=== PATIENT | female | born 1975 | race Caucasian/White ===

== ENCOUNTER 2017-03-15 11:34 | Emergency (ER) | payer MEDICARE ==
[2017-03-15 12:17] LABS: #Basophils 0.1 thou/uL (0.0-0.2); #Eosinphils 0.1 thou/uL (0.0-0.7); #Lymphocytes 2.2 thou/uL (1.20-3.40); #Monocytes 0.4 thou/uL (0.11-0.59); #Neutrophils 9.2 thou/uL (1.40-6.50); %Basophils 0.6 % (0.0-1.0); %Eosinophils 0.7 % (0.0-10.0); %Lymphocytes 18.3 % (21.0-51.0); %Monocytes 3.6 % (0.0-10.0); Hematocrit 38.1 % (36.0-47.0); Mean Platelet Volume 6.3 fL (7.4-10.4); Red Blood Cell (RBC) Count 4.23 mill/uL (4.20-5.40)
[2017-03-15 12:39] LABS: ALT (SGPT) 19 U/L (8-55); AST (SGOT) 19 U/L (5-34); Acetaminophen Less than 6.0 mcg/mL (10.0-30.0); Alkaline Phosphatase 79 U/L (40-150); Anion Gap 12 mmol/L (10-20); BUN (Urea Nitrogen) 17 mg/dL (7.0-18.7); Bilirubin, Total 0.2 mg/dL (0.2-1.2); CK (CPK) 166 U/L (29-168); Calc. Creatinine Clearance 0 mL/min (70-130); Calcium 9.3 mg/dL (7.8-10.44); Carbon Dioxide 23 mmol/L (22-29); Chloride 110 mmol/L (98-107); Estimated GFR-MDRD 66; Globulin 3.3 g/dL (2.4-3.5); Salicylate Less than 8.0 mg/dL (15.0-30.0)
[2017-03-15] MEDS ORDERED: Ondansetron HCl/PF 4 MG/2 ML Vial ONE ×2 (13:13→13:20)
[2017-03-15] MEDS ORDERED: Promethazine HCl 25 MG/ML VIAL ONE (14:04)
[2017-03-15 14:27] LABS: Bilirubin Negative (Negative); Blood, Urine Negative (Negative); Glucose, Urine (Dipstick) Negative (Negative); Ketone, Urine Negative (Negative); Nitrite Negative (Negative); Protein, Urine (Dipstick) Negative (Neg-Trace); Urobilinogen 0.2 mg/dL (0.2-1.0)
[2017-03-15] MEDS ORDERED: Ketorolac Tromethamine 30 MG/ML VIAL ONE (14:35)
[2017-03-15 14:38] LABS: Amphetamine Not Detected (NotDetected); Methadone Not Detected (NotDetected); Methamphetamine Not Detected (NotDetected)
== END 2017-03-15 14:55 | disposition home or self-care (01) ==
LOC: ERS 11:34
DX: T65.91XA Toxic effect of unspecified substance, accidental (unintentional), initial encounter (principal); K21.9 Gastro-esophageal reflux disease without esophagitis; G43.909 Migraine, unspecified, not intractable, without status migrainosus; F31.9 Bipolar disorder, unspecified; F23 Brief psychotic disorder; F41.9 Anxiety disorder, unspecified
CPT/HCPCS: 36415; 80053; 80306; 80307; 81003; 82550; 84443; 85025; 93005; 96361; 96365; 96375; J1885; J2405; J2550

== ENCOUNTER 2018-04-25 03:45 | Observation (INO) | payer MEDICARE ==
[2018-04-25] MEDS ORDERED: metroNIDAZOLE 500 MG/100 ML BAG ONE (04:07)
[2018-04-25 04:37] LABS: #Basophils 0.1 thou/uL (0.0-0.2); #Eosinphils 0.3 thou/uL (0.0-0.7); #Monocytes 0.7 thou/uL (0.11-0.59); #Neutrophils 7.4 thou/uL (1.40-6.50); %Basophils 0.6 % (0.0-1.0); %Eosinophils 3.2 % (0.0-10.0); %Lymphocytes 19.2 % (21.0-51.0); %Monocytes 6.7 % (0.0-10.0); %Neutrophils 70.3 % (42.0-75.0); Hemoglobin 14.5 g/dL (12.0-16.0); Mean Corpuscular HGB CONC 31.8 g/dL (32.0-36.0); Mean Corpuscular Hemoglobin 29.5 pg (27.0-31.0); Mean Corpuscular Volume 92.6 fL (78.0-98.0); Mean Platelet Volume 6.4 fL (7.4-10.4); Platelet Count 431 thou/uL (130-400); RBC Distribution Width 12.7 % (11.5-14.5); Red Blood Cell (RBC) Count 4.93 mill/uL (4.20-5.40); White Blood Cell (WBC) Count 10.6 thou/uL (4.8-10.8)
[2018-04-25] MEDS ORDERED: Morphine 2 MG/ML SYRINGE ONE ×2 (04:46→05:37)
[2018-04-25 04:57] LABS: ALT (SGPT) 22 U/L (8-55); AST (SGOT) 14 U/L (5-34); Alkaline Phosphatase 62 U/L (40-150); Anion Gap 16 mmol/L (10-20); BUN (Urea Nitrogen) 13 mg/dL (7.0-18.7); Bilirubin, Total 0.3 mg/dL (0.2-1.2); Calc. Creatinine Clearance 0 mL/min (70-130); Calcium 9.4 mg/dL (7.8-10.44); Carbon Dioxide 20 mmol/L (22-29); Chloride 105 mmol/L (98-107); Estimated GFR-MDRD 62; Globulin 3.3 g/dL (2.4-3.5); Glucose 117 mg/dL (70-105); Lipase 15 U/L (8-78); Magnesium 2.4 mg/dL (1.6-2.6); Potassium 3.5 mmol/L (3.5-5.1); Protein, Total 7.3 g/dL (6.0-8.3); Sodium 137 mmol/L (136-145)
[2018-04-25] MEDS ORDERED: Lidocaine Viscous Sol 2% 15 ml UD Cup ONE (05:37)
[2018-04-25] MEDS ORDERED: Mag-Al 1200 mg/1200 mg/30 ML UDCUP ONE (05:37)
[2018-04-25 07:34] VITALS: BMI 38.2
[2018-04-25] MEDS ORDERED: HYDROcodone/Acetaminophen 5/325 mg Tablet PO PRN (08:03)
[2018-04-25] MEDS ORDERED: Senokot S 8.6-50 MG TAB PO PRN (08:03)
[2018-04-25] MEDS ORDERED: OLANZapine 5 MG TAB PO SCH (08:15)
[2018-04-25] MEDS ORDERED: predniSONE 20 MG TAB PO SCH (08:30)
--- NOTE | 2018-04-25 08:37 | RAD ---
RADIOGRAPH CHEST 1 VIEW: HISTORY: 42-year-old female with dyspnea. FINDINGS: There are no air space densities, pulmonary edema, pneumothorax, or cardiomegaly. The lateral costop hrenic angles are sharp. IMPRESSION: No acute cardiopulmonary findings. nick [] POS: DAVI
[2018-04-25] MEDS ORDERED: predniSONE 20 MG TAB ONE (08:54)
[2018-04-25] MEDS ORDERED: Topiramate 100 MG TAB ONE (08:56)
[2018-04-25] MEDS ORDERED: clonazePAM 1 MG TAB ONE (08:56)
[2018-04-25] MEDS: HYDROcodone/Acetaminophen 5/325 mg Tablet PO PRN ×3 (09:42→20:47)
[2018-04-25] MEDS: clonazePAM 1 MG TAB PO SCH ×3 (09:43→20:47)
[2018-04-25] MEDS: guaiFENesin 200 MG TAB PO SCH ×3 (09:43→20:47)
[2018-04-25] MEDS: Bupropion 100 MG SR TAB PO SCH (09:43)
[2018-04-25] MEDS: OLANZapine 5 MG TAB PO SCH ×2 (09:43→20:47)
[2018-04-25] MEDS: Sodium Chloride 0.9% 1,000 ML IV SCH ×2 (09:43→23:18)
[2018-04-25] MEDS: Topiramate 100 MG TAB PO SCH (09:43)
[2018-04-25] MEDS: Piperacillin/Tazobactam 3.375 GM in Sodium Chloride 0.9% 100 ML IVPB SCH ×3 (12:02→23:18)
[2018-04-25] MEDS: OLANZapine 2.5 MG TAB PO SCH (12:02)
[2018-04-25] MEDS ORDERED: Doxepin HCl 25 MG CAP PO SCH (21:00)
[2018-04-25] MEDS ORDERED: Topiramate 100 MG TAB PO SCH (21:00)
--- NOTE | 2018-04-25 23:25 | HP ---
CHIEF COMPLAINT: Shortness of breath. HISTORY OF PRESENT ILLNESS: This patient is a 42-year-old female who has history of severe bipolar d isorder who goes to [facility] for electroshock therapy every Friday. This Friday, the patient lora d an episode and subsequently was thought to have possibly aspirated. She has had some cough and wiley rtness of breath since that time. She presented to the emergency department on 04/23/2018 with a com plaint of some difficulty breathing at that time. She underwent workup which included a CT scan of t he chest and she was diagnosed with bronchitis and discharged home. At that time, the patient had a white blood cell count of 16.7. The patient apparently returned on 04/24/2018 to [facility] in [place] where she continued to complain that she was having some shortness of breath. Review of her CT scan performed the day before was concerning for possibility of some aspira tion with patchy left upper lobe infiltrates. Patient was subsequently transferred to our facility. She did receive ceftriaxone and Flagyl as well as repeated DuoNebs. She also complained of some gen eralized abdominal pain and received Gypsy, Ativan, and ketorolac. Patient reports that she still fe els like she is having some difficulty with her breathing. She continues to report generalized pain and requests medication for pain. REVIEW OF SYSTEMS: Notable for generalized malaise and fatigue. She has some back pain and generali zed myalgias. PAST MEDICAL HISTORY: Notable for history of bipolar disorder, gastroesophageal reflux, migraines, s ome type of irregular heartbeat. PAST SURGICAL HISTORY: Left knee surgery x4, right knee surgery x5, prior breast biopsy, appendectom y, hysterectomy, tubal ligation, breast augmentation, back surgery, abscess of the left ankle, which was apparently Staph and a neurostimulator placement at some point for the back pain. SOCIAL HISTORY: Patient is a nonsmoker, nondrinker, nondrug user. She is FULL CODE, but says that i s primarily to make her mother happy and her mother would be her surrogate decision maker should that be necessary. FAMILY HISTORY: Diabetes and heart disease are present. ALLERGIES: ZOFRAN and ADHESIVES. CURRENT MEDICATIONS: Omeprazole 20 mg every day, olanzapine 2.5 mg 2 q.a.m. and q.p.m. and 1 p.o. ev gen daily, bupropion 100 mg every day, Klonopin 1 mg t.i.d., topiramate 200 mg q.a.m. and 100 mg at b edtime, doxepin 150 mg every day, iron bisglycinate q.8, Chelate 25 mg every day. PHYSICAL EXAMINATION: VITAL SIGNS: Temperature is 97.6, pulse 77, respirations 16, O2 sat 97% on room air, BP 106/75. GENERAL APPEARANCE: Age appropriate female, morbidly obese. She is awake and alert, appears general ly frail. HEENT: PERRL. No OP lesions. NECK: Supple and symmetric. HEART: Regular rate and rhythm without murmurs. LUNGS: Clear to auscultation. She has some significant upper airway rhonchi which seemed to be some what related to self-induced auto PEEP. ABDOMEN: Soft, nontender, nondistended. Positive bowel sounds. No masses, no organomegaly. MUSCULOSKELETAL: Lower extremities warm and dry with no edema. LABORATORY DATA AND IMAGING DATA: White count 10.6, hemoglobin 14.5, platelets 431, 70% neutrophils, 19.2 lymphocytes, 6.7 monocytes, 3.2 eosinophils 7.4, neutrophils. Sodium 137, potassium 3.5, chlor roseanna 105, CO2 20, BUN 13, creatinine 0.98, glucose 117, calcium 9.4, magnesium 2.4, AST is 14, ALT is 22, albumin 4.0, lipase 15. Influenza screen negative. Chest x-ray negative. ASSESSMENT AND PLAN: 1. Possible aspiration pneumonia. The patient had apparent evidence of aspiration at her electric s hock therapy on Friday, she presented to the emergency department 2 days ago and was diagnosed. A t that time she was noted to have a white count of over 16,000. Currently, the patient reports subje ctive shortness of breath and difficulty breathing, although she is not tachypneic or tachycardic and her oxygen saturation is normal. Her exam seems to be revealing more upper airway rhonchi which adri f-induced auto PEEP and noises cannot be ruled out based on my exam. The patient will be treated wit h appropriate antibiotics for aspiration. She reports that receiving the nebulizer treatments at the emergency room did not help her in any way and only made her feel shaky, so I will not continue thos e as it does not appear that she has any small airway obstruction or wheezes. We will see how she do es in the morning. 2. Generalized myalgias. Unclear etiology, may be related to infection, but it looks like she may h ave some degree of chronic pain syndrome related to her back. We will give her low dose Gypsy to use as needed. Given her one dose of steroids to try to help with the myalgias and upper airway symptom s as well. 3. History of bipolar disorder. We will continue all of her usual home medications.
[2018-04-26 04:07] LABS: #Eosinphils 0.1 thou/uL (0.0-0.7); #Lymphocytes 1.1 thou/uL (1.20-3.40); #Monocytes 0.4 thou/uL (0.11-0.59); %Basophils 0.3 % (0.0-1.0); %Eosinophils 0.6 % (0.0-10.0); %Lymphocytes 11.7 % (21.0-51.0); %Monocytes 4.4 % (0.0-10.0); Hemoglobin 12.9 g/dL (12.0-16.0); Mean Corpuscular Hemoglobin 30.7 pg (27.0-31.0); Mean Corpuscular Volume 92.8 fL (78.0-98.0); Mean Platelet Volume 6.7 fL (7.4-10.4); Platelet Count 346 thou/uL (130-400); RBC Distribution Width 12.5 % (11.5-14.5); Red Blood Cell (RBC) Count 4.21 mill/uL (4.20-5.40); White Blood Cell (WBC) Count 9.6 thou/uL (4.8-10.8)
[2018-04-26 04:32] LABS: Anion Gap 10 mmol/L (10-20); BUN (Urea Nitrogen) 10 mg/dL (7.0-18.7); Calc. Creatinine Clearance 146 mL/min (70-130); Calcium 8.5 mg/dL (7.8-10.44); Carbon Dioxide 18 mmol/L (22-29); Chloride 113 mmol/L (98-107); Estimated GFR-MDRD 70; Glucose 146 mg/dL (70-105); Potassium 4.2 mmol/L (3.5-5.1); Sodium 137 mmol/L (136-145)
[2018-04-26] MEDS: Piperacillin/Tazobactam 3.375 GM in Sodium Chloride 0.9% 100 ML IVPB SCH ×2 (05:26→11:26)
[2018-04-26 07:35] VITALS: BP 117/75; TEMP 98
[2018-04-26] MEDS: clonazePAM 1 MG TAB PO SCH (07:36)
[2018-04-26] MEDS: guaiFENesin 200 MG TAB PO SCH (07:36)
[2018-04-26] MEDS: Bupropion 100 MG SR TAB PO SCH (07:36)
[2018-04-26] MEDS: Topiramate 100 MG TAB PO SCH (07:37)
[2018-04-26] MEDS: OLANZapine 5 MG TAB PO SCH (07:37)
--- NOTE | 2018-04-26 09:03 | RAD ---
RADIOGRAPH CHEST 2 VIEWS: HISTORY: 42-year-old female with dyspnea. Possible pneumonia. FINDINGS: There is no air space density, pulmonary edema, pleural effusion, pneumothorax, or cardiomegaly. IMPRESSION: No acute cardiopulmonary findings. jn [] POS: DAVI
[2018-04-26] MEDS ORDERED: predniSONE 20 MG TAB PO SCH (09:45)
[2018-04-26] MEDS: Sodium Chloride 0.9% 1,000 ML IV SCH (10:18)
[2018-04-26] MEDS: OLANZapine 2.5 MG TAB PO SCH (11:26)
--- NOTE | 2018-04-26 12:08 | PDOC.PN ---
- Subjective Encounter Start Date: 04/26/18 Encounter Start Time: 07:40 Subjective: breathing better - Objective Resuscitation Status: Resuscitation Status FULL:Full Resuscitation MAR Reviewed: Yes Vital Signs & Weight: Vital Signs (12 hours) Temp Pulse Resp BP Pulse Ox 04/26/18 07:31 98 F 80 16 117/75 95 04/26/18 04:00 97.3 F L 94 16 106/71 95 Weight Weight 244 lb 7.882 oz I&O: 04/25/18 04/26/18 04/27/18 06:59 06:59 06:59 Intake Total 1617 Balance 1617 Result Diagrams: 04/26/18 03:40 04/26/18 03:40 Phys Exam - Physical Examination HEENT: PERRLA, moist MMs Neck: no JVD, supple Respiratory: no wheezing, no rales Cardiovascular: RRR, no significant murmur Gastrointestinal: soft, non-tender, positive bowel sounds Musculoskeletal: no edema, pulses present Neurological: non-focal, moves all 4 limbs Psychiatric: normal affect, A&O x 3 Dx/Plan (1) Aspiration pneumonitis Code(s): J69.0 - PNEUMONITIS DUE TO INHALATION OF FOOD AND VOMIT Status: Acute (2) Bipolar disorder with severe depression Code(s): F31.4 - BIPOLAR DISORD, CRNT EPSD DEPRESS, SEV, W/O PSYCH FEATURES Status: Chronic (3) Obesity (BMI 30-39.9) Code(s): E66.9 - OBESITY, UNSPECIFIED Status: Chronic (4) Migraine Code(s): G43.909 - MIGRAINE, UNSP, NOT INTRACTABLE, WITHOUT STATUS MIGRAINOSUS Status: Chronic (5) GERD (gastroesophageal reflux disease) Code(s): K21.9 - GASTRO-ESOPHAGEAL REFLUX DISEASE WITHOUT ESOPHAGITIS Status: Chronic Qualifiers: Esophagitis presence: esophagitis presence not specified Qualified Code(s) : K21.9 - Gastro-esophageal reflux disease without esophagitis - Plan dc pt home -: is on augmentin, alb inhaler -: hemostable -: cxr x2 no infiltrate, cta had left UE infiltrate -: is amb in hallway with spo2 of 95% * .
--- NOTE | 2018-04-26 17:06 | DIS ---
DATE OF ADMISSION: 04/25/2018 DATE OF DISCHARGE: 04/26/2018 DISCHARGE DIAGNOSES: 1. Aspiration bronchitis. 2. Generalized myalgias. 3. History of bipolar disorder. HISTORY OF PRESENT ILLNESS: The patient is a 42-year-old female with a history of significant bipola r disorder who goes to [place] every Friday in order to have electric shock therapy. This past , the patient apparently had some concerns for possible aspiration. She followed up at the [facility] Department on the where she had workup including a CT scan of the chest. T he patient was diagnosed with bronchitis and discharged to home. The patient returned the following day with persistent symptoms and some generalized myalgias. The patient had review of her CT scan, w hich reportedly showed some left upper lobe faint infiltrates concerning for the possibility of aspir ation. The patient was treated with IV antibiotics and subsequently transferred to our facility. Re peat chest x-ray at that time showed no evidence of infiltrate. HOSPITAL COURSE: The patient was admitted to the hospital. She was started on IV Zosyn for possible aspiration. She remained in observation status. Her initial exam did not reveal significant rales or wheezes in the periphery, but more bronchial rhonchi. The patient remained afebrile overnight. H er oxygen saturations remained quite normal without any supplemental oxygen therapy. She did receive 1 dose of prednisone initially in order to help improve her myalgias and hopefully resolve some of t he inflammation associated with what appeared to be more bronchitis. The following morning, the gamaliel ent's exam was somewhat improved. She still reported that she felt like she was working hard to [employer], although she was not tachypneic. She was not tachycardic. She remained afebrile and her chest x-ray remained clear. I discussed the situation with the patient. There is really no evidence of si gnificant pneumonia or pneumonitis. My review of her CAT scan suggests that the findings are extreme ly faint and even equivocal on the CT scan. Given her normal vital signs, normal oxygen status, norm al white blood cell count, and normal chest x-ray x2, I feel confident that she can be treated as an outpatient with oral therapy. The patient feels like she can get up and around adequately at home to function. She has a 15-year-old daughter there and her mother lives in [place] as well. Her [facility] er will be able to come pick her up today. I was able to absorb her walking in the [place] at the [facility] and she appears to be doing well. PHYSICAL EXAMINATION: VITAL SIGNS: Temperature is 98, pulse 80, respirations 16, O2 sat 95% on room air, BP 117/75. GENERAL APPEARANCE: Obese, age-appropriate female. She is little bit lethargic, but in no distress, appropriately conversant. HEART: Regular without murmurs. LUNGS: Clear, although she does have some modest bronchial rhonchi, which are significantly improved from the prior exam. ABDOMEN: Soft and nontender. EXTREMITIES: Warm and dry without edema. LABORATORY DATA: White count is 9.6, hemoglobin 12.9, platelets 364. Blood cultures remain negative and chest x-ray shows no acute cardiopulmonary disease. DISPOSITION: The patient will be discharged to home. DISCHARGE MEDICATIONS: She is to continue all of her usual home medications. She will also be on Au gmentin 875 one p.o. b.i.d. DISCHARGE INSTRUCTIONS: She is to have a regular diet and activity level. She indicates that she lora s an appointment to establish with her PCP sometime within the next 2 weeks. She is encouraged to re turn to the Emergency Department should she have any problems prior to that time. I will also give h er 1 more dose of oral prednisone prior to her discharge. The patient should follow up with her PCP regarding the possibility of some sleep apnea as well.
== END 2018-04-26 14:44 | disposition home or self-care (01) ==
LOC: ERS 03:45 → T4-A 05:00 → T4-B 06:54
PROVIDERS: ADMIT Internal Medicine; ATTEND Internal Medicine
DX: J69.0 Pneumonitis due to inhalation of food and vomit (principal); F31.4 Bipolar disorder, current episode depressed, severe, without psychotic features; E66.9 Obesity, unspecified; G43.909 Migraine, unspecified, not intractable, without status migrainosus; K21.9 Gastro-esophageal reflux disease without esophagitis; M79.10 Myalgia, unspecified site; Z88.8 Allergy status to other drugs, medicaments and biological substances; Z79.899 Other long term (current) drug therapy
CPT/HCPCS: 71045; 71046; 80048; 80053; 83690; 83735; 85025 ×2; 87040; 87804 ×2; 94760 ×2; 96361 ×2; 96365; 96366 ×3; 96367; 96375; 96376; 99285; G0378 ×2; 36415; 96374; J2270; J2543; J7050; J7506

== ENCOUNTER 2019-01-05 13:20 | Outpatient (CLI) | payer OTHER | END 2019-01-05 13:21 | disposition home or self-care (01) | LOC: DTY/OP 13:20 | PROVIDERS: ATTEND Surgery | DX: E66.01 Morbid (severe) obesity due to excess calories (principal) | CPT/HCPCS: 97802 ==

== ENCOUNTER 2019-01-25 16:22 | Outpatient (CLI) | payer MEDICARE ==
[2019-01-25 18:17] LABS: #Basophils 0.1 thou/uL (0.0-0.2); #Eosinphils 0.1 thou/uL (0.0-0.7); #Lymphocytes 1.7 thou/uL (1.20-3.40); #Monocytes 0.6 thou/uL (0.11-0.59); #Neutrophils 7.7 thou/uL (1.40-6.50); %Basophils 0.6 % (0.0-1.0); %Eosinophils 0.7 % (0.0-10.0); %Lymphocytes 17.2 % (21.0-51.0); %Monocytes 5.5 % (0.0-10.0); Hemoglobin 14.9 g/dL (12.0-16.0); Mean Corpuscular HGB CONC 34.3 g/dL (32.0-36.0); Mean Corpuscular Hemoglobin 31.6 pg (27.0-31.0); Mean Corpuscular Volume 92.3 fL (78.0-98.0); Mean Platelet Volume 7.4 fL (7.4-10.4); Platelet Count 360 thou/uL (130-400); RBC Distribution Width 12.5 % (11.5-14.5); Red Blood Cell (RBC) Count 4.72 mill/uL (4.20-5.40); White Blood Cell (WBC) Count 10.1 thou/uL (4.8-10.8)
[2019-01-25 18:31] LABS: Hemoglobin A1c 5.1 % (4.0-6.0)
[2019-01-25 18:36] LABS: ALT (SGPT) 32 U/L (8-55); AST (SGOT) 20 U/L (5-34); Albumin 4.1 g/dL (3.5-5.0); Alkaline Phosphatase 63 U/L (40-150); Anion Gap 14 mmol/L (10-20); BUN (Urea Nitrogen) 12 mg/dL (7.0-18.7); Bilirubin, Direct 0.2 mg/dL (0.1-0.3); Bilirubin, Total 0.5 mg/dL (0.2-1.2); Calc. Creatinine Clearance 0 mL/min (70-130); Calcium 9.2 mg/dL (7.8-10.44); Carbon Dioxide 19 mmol/L (22-29); Chloride 107 mmol/L (98-107); Estimated GFR-MDRD 63; Globulin 2.7 g/dL (2.4-3.5); Glucose 88 mg/dL (70-105); Potassium 4.4 mmol/L (3.5-5.1); Protein, Total 6.8 g/dL (6.0-8.3); Sodium 136 mmol/L (136-145)
== END 2019-01-25 16:23 | disposition home or self-care (01) ==
LOC: LABBT 16:22
PROVIDERS: ATTEND Surgery
DX: Z01.818 Encounter for other preprocedural examination (principal); I10 Essential (primary) hypertension; E78.5 Hyperlipidemia, unspecified; Z68.38 Body mass index [BMI] 38.0-38.9, adult
CPT/HCPCS: 80053; 80076; 83036; 85025; 93005; 93010

== ENCOUNTER 2019-01-25 17:00 | Inpatient (IN) | payer MEDICARE ==
[2019-02-02] MEDS ORDERED: Heparin 5,000 UNITS/ML VIAL ONE (06:36)
[2019-02-02] MEDS ORDERED: Bupivacaine/Epinephrine 0.25% 30 ML VIAL ONE (06:45)
[2019-02-02] MEDS ORDERED: Fentanyl 250 MCG/5 ML VIAL ONE (06:53)
[2019-02-02] MEDS ORDERED: Promethazine HCl 25 MG/ML VIAL ONE ×2 (07:39→08:57)
[2019-02-02] MEDS ORDERED: Midazolam HCl 2 mg/2 ml Vial ONE (07:39)
[2019-02-02] MEDS ORDERED: Fentanyl 100 MCG/2 ML VIAL ONE (08:56)
[2019-02-02] MEDS ORDERED: Dextrose 50% Abboject 50 ML SYRINGE SLOW IVP PRN (09:04)
[2019-02-02] MEDS ORDERED: Hydrocodone-Acetamin 15 ML UDCUP PO PRN (09:04)
[2019-02-02] MEDS ORDERED: diphenhydrAMINE 50 MG/ML VIAL IVP PRN ×2 (09:04→09:26)
[2019-02-02] MEDS ORDERED: hydrALAZINE 20 MG/ML VIAL SLOW IVP PRN (09:04)
[2019-02-02] MEDS ORDERED: Dextrose 5% in Water 1,000 ML IV PRN (09:04)
[2019-02-02] MEDS ORDERED: CEFAZOLIN 2 GM in Premix Bag 1 BAG IVPB SCH (09:15)
[2019-02-02] MEDS ORDERED: diphenhydrAMINE 25 MG CAP PO PRN (09:26)
[2019-02-02] MEDS ORDERED: fentaNYL Citrate/PF 2,000 MCG in Sodium Chloride 0.9% 60 ML IV PRN (09:26)
[2019-02-02] MEDS ORDERED: Promethazine HCl 25 MG/ML VIAL SLOW IVP PRN (09:26)
[2019-02-02] MEDS ORDERED: Zolpidem Tartrate 5 MG TAB PO PRN (09:26)
[2019-02-02] MEDS ORDERED: Naloxone HCl 0.4 mg/ml Vial IV PRN (09:26)
[2019-02-02] MEDS ORDERED: diphenhydrAMINE 50 MG/ML VIAL IM PRN (09:26)
[2019-02-02] MEDS ORDERED: Ketorolac Tromethamine 30 MG/ML VIAL IVP PRN (09:26)
[2019-02-02] MEDS ORDERED: Promethazine HCl 25 MG/ML VIAL IM PRN ×2 (09:26)
[2019-02-02] MEDS ORDERED: Communication Order-Pharmacy FS SCH (09:30)
[2019-02-02] MEDS ORDERED: D5 1/2 NS w/20 mEq KCL 1,000 ML ONE (10:19)
--- NOTE | 2019-02-02 10:38 | OP ---
DATE OF PROCEDURE: 02/02/2019 PREOPERATIVE DIAGNOSIS: Morbid obesity. PROCEDURE PERFORMED: Laparoscopic sleeve gastrectomy with esophagogastroscopy. INDICATIONS: This is a 43-year-old female, who is morbidly obese, who has attempted multiple weight loss programs without success. FINDINGS: A 38-Canadian bougie used. DESCRIPTION OF PROCEDURE: After informed consent was obtained, the patient was taken to the operating room, given general endotracheal anesthesia. She was placed in the supine position. Abdomen was prepped and draped in usual fashion. Local anesthesia was infiltrated subcutaneously and deep. A 12-mm incision was performed approximately 8 inches above the xiphoid slightly to the left. Veress needle was inserted. Drop test was performed. Pneumoperitoneum was created to a volume of 2 L of carbon dioxide. Utilizing a bladeless 12-mm trocar and 0-degree laparoscope, direct visual entry into the abdominal cavity was performed. Pneumoperitoneum was then created to a pressure of 15 mmHg and the patient placed in steep reverse Trendelenburg position. Gem liver retractor inserted. Left lobe of the liver retracted superiorly. The pylorus was identified. A 12-mm port placed on the right beneath it two 12s placed on the left subcostal. The omentum was taken off the greater curvature 5 cm from the pylorus utilizing the LigaSure. Short gastrics were divided with LigaSure. Left crura defined with LigaSure. A 38-Canadian bougie inserted, directed into the antrum. The linear 60 mm green load stapler used to divide the antrum to the bougie, a gold load used along the bougie, and a series of blues through the angle of His. Intraoperative endoscopy was performed. The video endoscope inserted under direct vision and advanced into the sleeve. The staple line was inspected. There was no bleeding. Staple line then tested. By inflating the new stomach with pressurized air under water, there was no air leak. Stomach was decompressed. Scope was removed. The remnant stomach removed from the abdomen through the left lateral port site. The fascia was closed with 0 Vicryl suture and the GraNee needle. Trocars and retractors were removed. Hemostasis was assured. The skin was closed with interrupted 4-0 Rapide. The patient had sensitivity to Dermabond. We applied Skin-Prep for ostomy care to the dry skin and then used quarter-inch Steri-Strips to close the incisions. A light bandage was used by using ABD pads to cover these trocar sites to minimize any adhesive to the skin. Job ID: [id number]
[2019-02-02] MEDS ORDERED: Ketorolac Tromethamine 30 MG/ML VIAL IVP SCH (12:00)
[2019-02-02 13:13] VITALS: BMI 37.3
[2019-02-02] MEDS: D5 1/2 NS w/20 mEq KCL 1,000 ML IV SCH ×2 (13:29→16:02)
[2019-02-02] MEDS: Ketorolac Tromethamine 30 MG/ML VIAL IVP SCH ×2 (14:30→20:38)
[2019-02-02] MEDS: CEFAZOLIN 2 GM in Premix Bag 1 BAG IVPB SCH ×2 (14:36→23:56)
--- NOTE | 2019-02-02 19:00 | PDOC.GSPN ---
Surgery Progress Note: Obj - Vital signs Vital signs: Vital Signs - Most Recent Temp Pulse Resp BP Pulse Ox 98.4 F 85 18 135/71 96 02/02/19 07:33 02/02/19 07:33 02/02/19 07:33 02/02/19 07:33 02/02/19 16:00
[2019-02-02] MEDS: Promethazine HCl 25 MG/ML VIAL IM PRN (19:20)
[2019-02-03] MEDS: Promethazine HCl 25 MG/ML VIAL IM PRN ×2 (00:02→08:00)
[2019-02-03] MEDS: Ketorolac Tromethamine 30 MG/ML VIAL IVP SCH ×4 (02:42→20:20)
[2019-02-03] MEDS: D5 1/2 NS w/20 mEq KCL 1,000 ML IV SCH ×3 (02:44→11:05)
[2019-02-03 06:07] LABS: #Lymphocytes 1.5 thou/uL (1.20-3.40); #Monocytes 0.7 thou/uL (0.11-0.59); #Neutrophils 7.9 thou/uL (1.40-6.50); %Basophils 0.1 % (0.0-1.0); %Eosinophils 0.4 % (0.0-10.0); %Lymphocytes 14.5 % (21.0-51.0); %Monocytes 7.2 % (0.0-10.0); %Neutrophils 77.8 % (42.0-75.0); Hemoglobin 13.9 g/dL (12.0-16.0); Mean Corpuscular HGB CONC 32.3 g/dL (32.0-36.0); Mean Corpuscular Hemoglobin 30.4 pg (27.0-31.0); Mean Platelet Volume 7.5 fL (7.4-10.4); Platelet Count 319 thou/uL (130-400); RBC Distribution Width 12.4 % (11.5-14.5); Red Blood Cell (RBC) Count 4.56 mill/uL (4.20-5.40); White Blood Cell (WBC) Count 10.2 thou/uL (4.8-10.8)
--- NOTE | 2019-02-03 07:11 | PDOC.GSPN ---
Surgery Progress Note: Subj - Subjective Narrative: Post-op day number 1. Patient feeling ok. Complains of abdominal pain that is rated about 5-6 out of 10. Some itchiness over the incision sites and she has been nauseous, but no vomiting. She has been able to walk on the hallways all on her own. Patient remains NPO. She can urinate fine but no flatus or bowel movements since surgery. Surgery Progress Note: Obj - Vital signs Vital signs: Vital Signs - Most Recent Temp Pulse Resp BP Pulse Ox 97.8 F 67 16 121/82 99 02/03/19 04:48 02/03/19 04:48 02/03/19 04:48 02/03/19 04:48 02/03/19 04:48 - Physical Exam General: moderate pain ENT: no congestion, normal pinna Neck: trachea midline Cardiovascular: regular rate and rhythm Respiratory: clear to auscultation, normal expansion, normal respiratory effort , breath sounds present Abdomen: nondistended, positive bowel sounds, appropriately tender (Tenderness elicited in the abdomen mostly upon the RUQ and LUQ.) Surgery Progress Note: Results - Labs Result Diagrams: 02/03/19 05:21 Lab results: Laboratory Results - last 24 hr 02/03/19 05:21 WBC 10.2 RBC 4.56 Hgb 13.9 Hct 42.9 MCV 94.0 MCH 30.4 MCHC 32.3 RDW 12.4 Plt Count 319 MPV 7.5 Neutrophils % 77.8 H Lymphocytes % 14.5 L Monocytes % 7.2 Eosinophils % 0.4 Basophils % 0.1 Neutrophils # 7.9 H Lymphocytes # 1.5 Monocytes # 0.7 H Eosinophils # 0.0 Basophils # 0.0 Surgery Progress Note: A/P - Problem (1) S/P gastrectomy Current Visit: Yes Status: Acute - Plan Plan: Will continue to monitor the patient. will advance to clear liquids when patient experiences flatus. Continue maintenance fluids. Monitor CBC and electrolytes. Encourage ambulation and use of incentive spirometer. Patient is currently on fentanyl to help manage the pain.
[2019-02-03 08:00] LABS: Anion Gap 13 mmol/L (10-20); BUN (Urea Nitrogen) 6 mg/dL (7.0-18.7); Calc. Creatinine Clearance 135 mL/min (70-130); Calcium 8.9 mg/dL (7.8-10.44); Carbon Dioxide 20 mmol/L (22-29); Chloride 112 mmol/L (98-107); Estimated GFR-MDRD 72; Glucose 104 mg/dL (70-105); Potassium 3.8 mmol/L (3.5-5.1); Sodium 141 mmol/L (136-145)
[2019-02-03] MEDS: Enoxaparin Sodium 40 MG/0.4 ML SYRINGE SC SCH (08:03)
[2019-02-03] MEDS: Pantoprazole 40 MG VIAL IVP SCH (08:08)
--- NOTE | 2019-02-03 10:57 | RAD ---
XR UGI Single Contrast No Air HISTORY: Recent vertical sleeve gastrectomy. Post bariatric surgery evaluation Procedure: Single sip swallow study was performed with administration of 15 mL contrast under fluoros copy. FINDINGS: Contrast traverses the gastroesophageal junction. No leak or evidence of obstruction. IMPRESSION: Normal study.
[2019-02-03] MEDS ORDERED: Acetaminophen 1,000 MG in Premix Bag 1 BAG IVPB PRN (13:00)
[2019-02-03] MEDS ORDERED: Sodium Chloride 0.9% 500 ML IV SCH (13:15)
--- NOTE | 2019-02-03 13:24 | PRG ---
DATE OF SERVICE: 02/03/2019 SUBJECTIVE: The patient is having extreme nausea. She says that the nausea is made worse with the pain, and she does not relate it to the pain medicine. We are trying different medications to control that. OBJECTIVE: VITAL SIGNS: Her temperature is 98, pulse 77, blood pressure 132/90. GENERAL: She looks fine. She is wide awake, alert, does not appear to be in any distress. LUNGS: Clear. HEART: Regular rate and rhythm. ABDOMEN: Obese, soft. She has some mild erythema around the Steri-Strips sites. LABORATORY DATA: Her white count is 10, H and H are 13 and 42, platelet count is 319. Her electrolytes; her chloride is 112, CO2 of 20, BUN is 6, creatinine is 0.86. Her swallow study was normal. ASSESSMENT: Postoperative nausea. PLAN: We will give her a little extra hydration. We will try some Raglan. We will avoid narcotics. Job ID: [id number]
[2019-02-03] MEDS: Hydrocodone-Acetamin 15 ML UDCUP PO PRN ×2 (14:12→20:21)
[2019-02-03] MEDS: Metoclopramide HCl 10 MG/2 ML VIAL IVP PRN ×2 (14:13→20:22)
[2019-02-04] MEDS: Hydrocodone-Acetamin 15 ML UDCUP PO PRN ×3 (01:55→14:28)
[2019-02-04] MEDS: D5 1/2 NS w/20 mEq KCL 1,000 ML IV SCH ×3 (01:55→14:37)
[2019-02-04] MEDS: Ketorolac Tromethamine 30 MG/ML VIAL IVP SCH ×3 (01:56→14:27)
[2019-02-04] MEDS: Metoclopramide HCl 10 MG/2 ML VIAL IVP PRN ×3 (01:56→14:31)
[2019-02-04] MEDS ORDERED: Lactated Ringer's 1,000 ML IV SCH (07:45)
--- NOTE | 2019-02-04 07:47 | PRG ---
DATE OF SERVICE: 02/04/2019 SUBJECTIVE: The patient continues to feel poorly. She states that she is not drinking much fluid. Her nausea is a little better. She is not vomiting, however, the nurse reported that she appears to be drinking better than she states and that she was ordering food that she should not have, so there is some inconsistency. OBJECTIVE: VITAL SIGNS: Her temperature is 97.8, pulse 59, and blood pressure 128/84. GENERAL: She is awake, alert. Her incisions have erythema around the Steri-Strips. There is no blistering. ABDOMEN: Not distended. ASSESSMENT: Poor oral intake. PLAN: We will restart IV, give her some IV fluids and we will discharge when she is able to tolerate enough p.o. intake. Job ID: [id number]
[2019-02-04] MEDS: Enoxaparin Sodium 40 MG/0.4 ML SYRINGE SC SCH (08:41)
[2019-02-04] MEDS: Pantoprazole 40 MG VIAL IVP SCH (09:14)
[2019-02-04 16:07] VITALS: BP 128/88; TEMP 98
--- NOTE | 2019-02-05 08:26 | DIS ---
DATE OF ADMISSION: 02/02/2019 DATE OF DISCHARGE: 02/04/2019 DISCHARGE DIAGNOSIS: Morbid obesity. PROCEDURES DURING ADMISSION: Laparoscopic sleeve gastrectomy, intraoperative esophagogastroscopy, and postoperative Gastrografin swallow. HOSPITAL COURSE: The patient was admitted, taken to the operating room where she underwent sleeve gastrectomy. Postoperatively, she had an excessive amount of nausea. Eventually, we were able to get that controlled with Phenergan. She underwent a Gastrografin swallow, was fine. She is now tolerating liquids well. Her pain is controlled on p.o. medications. Her nausea is controlled with Phenergan. She will follow up with me in 2 weeks. Job ID: [id number]
== END 2019-02-04 18:40 | disposition home or self-care (01) | DRG 621 ==
LOC: SURG A 02-02 06:01 → SURG B 02-02 11:06
PROVIDERS: ADMIT Surgery; ATTEND Surgery
PROC: 0DB64Z3 Excision of Stomach, Percutaneous Endoscopic Approach, Vertical (ICD-10-PCS; principal; 2019-02-02)
PROC: 0DJ08ZZ Inspection of Upper Intestinal Tract, Via Natural or Artificial Opening Endoscopic (ICD-10-PCS; 2019-02-02)
DX: E66.01 Morbid (severe) obesity due to excess calories (principal); I10 Essential (primary) hypertension; E78.5 Hyperlipidemia, unspecified; Z68.38 Body mass index [BMI] 38.0-38.9, adult; R11.0 Nausea
CPT/HCPCS: 36415; 74241; 80048; 85025; 88307; 88312; C9113; J0690; J1200; J1644; J1650; J1885; J2250; J2550; J2765; J3010; J3490

== ENCOUNTER → 2019-02-09 | Day surgery (SDC) | payer MEDICARE ==
[~2019-02-09] MED LIST: Ketorolac Tromethamine 30 MG/ML VIAL ONE; Multivit, Adult Inj 10 ML VIAL ONE; Promethazine HCl 25 MG/ML VIAL ONE
== END ==
LOC: ER/OP 12:52
PROVIDERS: ATTEND Surgery
DX: Z51.89 Encounter for other specified aftercare (principal)
CPT/HCPCS: J1885; J2550

== ENCOUNTER → 2019-02-12 | Day surgery (SDC) | payer MEDICARE ==
[~2019-02-12] MED LIST changes: -Ketorolac Tromethamine 30 MG/ML VIAL ONE
== END ==
LOC: ER/OP 14:35
PROVIDERS: ATTEND Surgery
DX: E86.0 Dehydration (principal); Z88.8 Allergy status to other drugs, medicaments and biological substances; Z91.048 Other nonmedicinal substance allergy status
CPT/HCPCS: J2550

== ENCOUNTER 2019-02-17 10:26 | Inpatient (IN) | payer MEDICARE ==
[2019-02-17] MEDS ORDERED: ISOVUE-370 76%-LOCM 1 ML ONE (11:12)
[2019-02-17] MEDS ORDERED: Fentanyl 100 MCG/2 ML VIAL ONE (11:56)
[2019-02-17] MEDS ORDERED: Promethazine HCl 25 MG/ML VIAL ONE ×2 (11:56→14:17)
[2019-02-17 12:55] LABS: #Eosinphils 0.1 thou/uL (0.0-0.7); #Lymphocytes 1.8 thou/uL (1.20-3.40); #Monocytes 0.7 thou/uL (0.11-0.59); #Neutrophils 6.5 thou/uL (1.40-6.50); %Basophils 0.5 % (0.0-1.0); %Eosinophils 1.2 % (0.0-10.0); %Lymphocytes 19.3 % (21.0-51.0); %Monocytes 7.5 % (0.0-10.0); %Neutrophils 71.4 % (42.0-75.0); Hemoglobin 14.6 g/dL (12.0-16.0); Mean Corpuscular HGB CONC 33.6 g/dL (32.0-36.0); Mean Corpuscular Hemoglobin 30.1 pg (27.0-31.0); Mean Corpuscular Volume 89.6 fL (78.0-98.0); Mean Platelet Volume 7.7 fL (7.4-10.4); Platelet Count 312 thou/uL (130-400); RBC Distribution Width 12.2 % (11.5-14.5); Red Blood Cell (RBC) Count 4.85 mill/uL (4.20-5.40); White Blood Cell (WBC) Count 9.1 thou/uL (4.8-10.8)
[2019-02-17 13:08] LABS: ALT (SGPT) 25 U/L (8-55); AST (SGOT) 20 U/L (5-34); Alkaline Phosphatase 53 U/L (40-150); Anion Gap 13 mmol/L (10-20); BUN (Urea Nitrogen) 14 mg/dL (7.0-18.7); Bilirubin, Total 0.3 mg/dL (0.2-1.2); Calc. Creatinine Clearance 0 mL/min (70-130); Calcium 9.3 mg/dL (7.8-10.44); Carbon Dioxide 20 mmol/L (22-29); Chloride 105 mmol/L (98-107); Estimated GFR-MDRD 79; Globulin 2.6 g/dL (2.4-3.5); Glucose 79 mg/dL (70-105); Lipase 42 U/L (8-78); Potassium 3.3 mmol/L (3.5-5.1); Protein, Total 6.6 g/dL (6.0-8.3); Sodium 135 mmol/L (136-145)
--- NOTE | 2019-02-17 13:45 | CT ---
CT ABDOMEN AND PELVIS WITH IV CONTRAST 02/17/2019 CLINICAL INFORMATION: Constant vomiting and weakness. Abdominal pain. COMPARISON: 08/13/[address] pelvis on 07/08/2017. Technique: Multiple contiguous axial CT images are obtained through the abdomen and pelvis with IV contrast. Cor onal reformatted images are provided. FINDINGS: Lower Chest: Minimal dependent bibasilar atelectasis is present. Bilateral breast prostheses are part ially imaged. Vessels: Abdominal aorta is normal in caliber without evidence of an aortic dissection. Abdomen: Portal vein:Patent Gallbladder: Again noted to be surgically absent. Liver: within normal limits. Spleen: within normal limits. Pancreas: within normal limits. Adrenals: within normal limits. Kidneys: within normal limits. Bowel: Postsurgical changes of the stomach are identified. Loops of small bowel are normal in caliber . A few scattered colonic diverticuli are seen. Appendix: Not visualized, but there are no secondary signs to suggest appendicitis. Peritoneum: No ascites or free air; no fluid collection. Mesentery and Retroperitoneum: No enlarged mesenteric or retroperitoneal lymph nodes. Abdominal Wall: A neural stimulation device overlies the right posterior flank region with leads ente ring the central canal at the L5-S1 level. Pelvis: Reproductive Organs: The uterus is surgically absent. Pelvis within normal limits. Bladder: within normal limits. Bones: Postsurgical changes right sacroiliac joint are again seen. IMPRESSION: 1. No acute findings are seen in the abdomen or pelvis. 2. Postsurgical changes involving the stomach with evidence of hysterectomy and cholecystectomy.
[2019-02-17] MEDS ORDERED: diphenhydrAMINE 50 MG/ML VIAL ONE (14:17)
[2019-02-17] MEDS ORDERED: Sodium Chloride 0.9% 1,000 ML IV SCH (17:15)
[2019-02-17] MEDS ORDERED: Fentanyl 100 MCG/2 ML VIAL SLOW IVP PRN (17:16)
[2019-02-17 17:53] VITALS: BMI 36.1
[2019-02-17 18:21] LABS: Calcium 8.5 mg/dL (7.8-10.44); Phosphorus 2.6 mg/dL (2.3-4.7)
[2019-02-17] MEDS: D5 1/2 NS w/20 mEq KCL 1,000 ML IV SCH (18:36)
[2019-02-17] MEDS: Scopolamine 1.5 mg/72 hour Patch TD SCH (18:36)
[2019-02-17] MEDS: Promethazine HCl 25 MG/ML VIAL SLOW IVP PRN (18:37)
[2019-02-17] MEDS ORDERED: Magnesium Oxide 400 MG TAB PO PRN ×2 (19:09)
[2019-02-17] MEDS ORDERED: Potassium Phosphate 15 MMOL in Sodium Chloride 0.9% 250 ML 250 ML IVPB PRN (19:09)
[2019-02-17] MEDS ORDERED: Magnesium 2 GM/50 ML 2 GM in Premix Bag 1 BAG IVPB SCH (19:09)
[2019-02-17] MEDS ORDERED: Potassium Chloride 20 MEQ in Premix Bag 1 BAG IVPB PRN (19:09)
[2019-02-17] MEDS ORDERED: Potassium Chloride 20 MEQ TAB PO PRN (19:09)
[2019-02-17] MEDS ORDERED: Potassium Chloride 40 MEQ in Premix Bag 1 BAG IVPB PRN (19:09)
[2019-02-17] MEDS ORDERED: Calcium Carbonate 500 MG TAB PO PRN (19:09)
[2019-02-17] MEDS ORDERED: Potassium Phosphate 12 MMOL in Sodium Chloride 0.9% 100 ML IVPB PRN (19:09)
[2019-02-17] MEDS ORDERED: Potassium Phosphate 9 MMOL in Sodium Chloride 0.9% 100 ML IVPB PRN (19:09)
[2019-02-17] MEDS ORDERED: NON-CRITICAL ELECTROLYTE REPLACEMENT PROTOCOL FS PRN (19:09)
[2019-02-17] MEDS ORDERED: Calcium Gluconate 9.2 MEQ in Sodium Chloride 0.9% 100 ML IVPB PRN (19:09)
[2019-02-17] MEDS ORDERED: PHOS-NAK 1 PKT PACK PO PRN ×2 (19:09)
[2019-02-17] MEDS ORDERED: Sodium Chloride 0.9% (PF) 10 ML VIAL FS PRN (19:20)
[2019-02-17] MEDS: Acetaminophen 1,000 MG in Premix Bag 1 BAG IVPB PRN (20:26)
[2019-02-17] MEDS ORDERED: Pantoprazole 40 MG VIAL IVP SCH (21:00)
[2019-02-17] MEDS: Metoclopramide HCl 10 MG/2 ML VIAL IVP SCH (21:05)
--- NOTE | 2019-02-17 23:45 | HP ---
CHIEF COMPLAINT: Vomiting. HISTORY OF PRESENT ILLNESS: This is a 43-year-old female, who is 15 days status post sleeve gastrectomy. She has had excessive nausea since the surgery. She has been to the emergency room twice, this would be her third visit, she had to receive fluids. She has been having difficulty in staying hydrated. Yesterday at 2:00 p.m., she developed severe dry heaves and vomiting. No hematemesis. She denies trying to swallow any pills or solid food, only liquids. Her last bowel movement was Friday. She says she is not passing any flatus. She reports pain across her upper and lower abdomen. PAST MEDICAL HISTORY: Migraine headaches, osteoarthritis, bipolar depression. PAST SURGICAL HISTORY: She has had knee surgery, appendectomy, hysterectomy, breast augmentation, ankle surgery, ovarian cystectomy and sleeve. MEDICATIONS: 1. Clonazepam. 2. Omeprazole. 3. Topamax. 4. Vitamins. FAMILY HISTORY: Diabetes and hypertension. SOCIAL HISTORY: She denies alcohol or tobacco. ALLERGIES: SHE HAS AN ALLERGY TO LATEX AND ZOFRAN. PHYSICAL EXAMINATION: VITAL SIGNS: Temperature 98, pulse 76, blood pressure 102/63. GENERAL: She is awake, alert, does not appear to be in any distress. HEENT: No jaundice. LUNGS: Clear. HEART: Regular rate and rhythm. ABDOMEN: Soft, nondistended. No tenderness. The incisions are healing extremely well. There is no evidence of infection. She has normoactive bowel sounds. LABORATORY DATA: Her white count is 9, H and H of 14 and 43, platelet count 312. Electrolytes are fine. LFTs fine. Her potassium is little low at 3.3. LFTs normal. Lipase normal. CT scan shows no evidence of obstruction. No free air. No leak. No free fluid. ASSESSMENT: Intractable vomiting. PLAN: We will check magnesium phosphate levels. We will also replenish her potassium, treat with antiemetics. Consult GI. Job ID: [id number]
[2019-02-18] MEDS: Promethazine HCl 25 MG/ML VIAL SLOW IVP PRN ×4 (01:59→21:06)
[2019-02-18] MEDS: D5 1/2 NS w/20 mEq KCL 1,000 ML IV SCH ×4 (01:59→21:02)
[2019-02-18] MEDS: Metoclopramide HCl 10 MG/2 ML VIAL IVP SCH ×3 (05:20→21:02)
[2019-02-18] MEDS: Acetaminophen 1,000 MG in Premix Bag 1 BAG IVPB PRN (05:20)
[2019-02-18] MEDS: Pantoprazole 40 MG VIAL IVP SCH (08:59)
[2019-02-18] MEDS ORDERED: Multivit, Adult Inj 10 ML VIAL IV SCH (09:00)
[2019-02-18 09:09] LABS: #Eosinphils 0.1 thou/uL (0.0-0.7); #Lymphocytes 1.5 thou/uL (1.20-3.40); #Monocytes 0.4 thou/uL (0.11-0.59); #Neutrophils 3.3 thou/uL (1.40-6.50); %Basophils 0.9 % (0.0-1.0); %Eosinophils 2.8 % (0.0-10.0); %Lymphocytes 28.1 % (21.0-51.0); %Monocytes 7.9 % (0.0-10.0); %Neutrophils 60.4 % (42.0-75.0); Hemoglobin 14.6 g/dL (12.0-16.0); MDiff Complete? YES; Mean Corpuscular HGB CONC 32.9 g/dL (32.0-36.0); Mean Corpuscular Hemoglobin 30.1 pg (27.0-31.0); Mean Corpuscular Volume 91.6 fL (78.0-98.0); Mean Platelet Volume 8.8 fL (7.4-10.4); Platelet Clumps MARKED; Platelet Morphology Comment PLT clumps seen-ADEQ; RBC Distribution Width 12.5 % (11.5-14.5); RBC Morphology Normal; Red Blood Cell (RBC) Count 4.86 mill/uL (4.20-5.40); White Blood Cell (WBC) Count 5.4 thou/uL (4.8-10.8)
[2019-02-18 09:24] LABS: Anion Gap 11 mmol/L (10-20); BUN (Urea Nitrogen) 6 mg/dL (7.0-18.7); Calc. Creatinine Clearance 154 mL/min (70-130); Calcium 8.6 mg/dL (7.8-10.44); Carbon Dioxide 18 mmol/L (22-29); Chloride 113 mmol/L (98-107); Estimated GFR-MDRD 87; Glucose 98 mg/dL (70-105); Potassium 3.7 mmol/L (3.5-5.1); Sodium 138 mmol/L (136-145)
--- NOTE | 2019-02-18 09:33 | PRG ---
DATE OF SERVICE: 02/18/2019 SUBJECTIVE: The patient is still having intractable nausea. She is not vomiting. Reports headache. OBJECTIVE: VITAL SIGNS: On examination, temperature is 97.8, pulse 59, and blood pressure 96/63. GENERAL: She is awake, alert. ABDOMEN: Soft, nondistended, and nontender. She is voiding. LABORATORY DATA: Her laboratory is fine. Her calcium, phosphorus, and magnesium are all fine. ASSESSMENT: Intractable nausea, unclear etiology. PLAN: We will try a barium swallow. We will repeat lab. Consult GI. Job ID: [id number]
[2019-02-18] MEDS: Multivitamins, Adult 10 ML in Sodium Chloride 0.9% 500 ML IV SCH (10:50)
--- NOTE | 2019-02-18 16:36 | RAD ---
XR Barium Swallow Esophagus History: Nausea. Dysphagia. Vomiting. Comparison: None available Findings: Patient was brought to the fluoroscopy suite. All questions were answered. Patient was initially given very small amount of gas-forming crystals. Next thin liquid barium was gi jay. Primary and secondary peristalsis was normal. There was, however, numerous tertiary contractions. Small to moderate sliding hiatal hernia. No obstruction. No extrinsic mass effect or diverticulum. No evidence of leak. Next the patient was put in the MORRISSEY position and given thick liquid contrast to continuously drink. P rimary and secondary peristalsis was again normal with numerous tertiary contractions. There is reflux to the upper one third esophagus. Small-moderate sliding hiatal hernia. Impression: 1. No evidence for leak. 2. Small-moderate sliding hiatal hernia with reflux of contrast to the upper one third esophagus. 3. Numerous tertiary contractions. Fluoroscopy time: 1.4 minutes Dose area product: 806.1 microgray meters squared
[2019-02-18] MEDS ORDERED: Ketorolac Tromethamine 30 MG/ML VIAL IVP PRN (16:50)
[2019-02-18] MEDS ORDERED: Nitroglycerin 0.4 MG TAB (25 Tab Bottle) SL PRN (17:11)
[2019-02-18] MEDS ORDERED: Donnatal Elixir 16.2 MG/5 ML UDCUP PO PRN (17:21)
--- NOTE | 2019-02-18 23:54 | CON ---
DATE OF CONSULTATION: 02/18/2019 CHIEF COMPLAINT: Nausea and vomiting. HISTORY OF PRESENT ILLNESS: Ms. Kaufman is a 43-year-old woman, who underwent sleeve gastrectomy 2 weeks ago. She has been to the emergency room couple of times with nausea, vomiting, and dehydration, received IV fluids. Two nights ago, she had recurrence of vomiting after just taking liquids through the day. Yesterday morning, she woke up with a headache and ongoing vomiting such that she came back to the emergency room. She was admitted for further care and had a CT scan of the abdomen and pelvis, which did not show any signs of acute complications. She underwent a barium swallow this morning that did show passage of the contrast through the gastric sleeve. GI was consulted for further evaluation and endoscopic management. She has had no hematemesis. She has had left upper quadrant aching abdominal pain that comes and goes and lasts for a minute at a time several times per day throughout the day over the last few days. This has not been constant ever since surgery. She has been on a liquid diet with protein shakes and water and broth since her surgery. She reports 11-pound weight loss since the surgery. She gained 90 pounds over the last year and a half. She had at baseline been around 130 pounds, but put on this weight rapidly. She was evaluated by her primary care physician and Endocrinology over in [place]. She reports cortisol levels and thyroid tests are normal. She has had an increase in acid reflux since her weight gain. She started omeprazole 20 mg daily about a year ago. After her surgery, she states that she was not feeling the acid reflux and heartburn, so she has not taken her omeprazole since her sleeve gastrectomy. She has not been taking NSAIDs. No chest pain or shortness of breath. She has been taking promethazine every 4 hours for the nausea and this helps temporarily. PAST MEDICAL HISTORY: Bipolar disorder, migraine headaches, osteoarthritis. PAST SURGICAL HISTORY: Knee surgery, appendectomy, hysterectomy, breast augmentation, ankle surgery, recent gastric sleeve. FAMILY HISTORY: Negative for GI malignancy. SOCIAL HISTORY: No alcohol, tobacco, or drugs. ALLERGIES: ZOFRAN, LATEX. MEDICATIONS: As an outpatient; 1. Clonazepam. 2. Omeprazole; however she has not taken this for the last couple weeks. 3. Topamax. 4. Vitamin. 5. Promethazine. CURRENT INPATIENT MEDICATIONS: Include; 1. Calcium carbonate. 2. Calcium gluconate. 3. Magnesium. 4. Metoclopramide. 5. Multiple vitamins. 6. Pantoprazole 40 mg IV daily. REVIEW OF SYSTEMS: Negative x10 systems reviewed except as stated in history of present illness. PHYSICAL EXAMINATION: VITAL SIGNS: Temperature 98.0, pulse 62, blood pressure 96/59. GENERAL: She is in no acute distress. She is alert and oriented x3. HEENT: Her eyes have no scleral icterus. Oropharynx is clear without lesions. No cervical or supraclavicular lymphadenopathy. LUNGS: Clear to auscultation bilaterally. HEART: Regular rate and rhythm without murmur. ABDOMEN: Soft. She has tenderness throughout the upper abdomen and lower abdomen, but more so in the left upper quadrant. Her bowel sounds are present. EXTREMITIES: No lower extremity edema. LABORATORY DATA: Creatinine 0.73, bilirubin 0.3, AST 20, ALT 25, alkaline phosphatase 53, albumin 4.0, amylase 35, lipase 42. White blood cell count 5.4, hemoglobin 14.6, platelets 312. IMAGING: CT scan of the abdomen and pelvis showed the gallbladder to be surgically absent. There is no small bowel dilation or obstructive signs to the neurostimulator noted in the right flank. No abscess or signs of surgical complications were seen. She had a barium swallow today that did show passage of contrast through the gastric sleeve into the small intestine. Tertiary contractions and some reflux were also seen. IMPRESSION: 1. Nausea and vomiting, persistent, status post sleeve gastrectomy 2 weeks ago. She likely is just having slow recovery from surgery and will require more time to adapt to her new anatomy. The barium study showed passage of contrast through the gastric sleeve. We will rule out a peptic ulcer or severe erosive esophagitis endoscopically. Also evaluate for any focal stricture that could be potentially dilated. 2. Gastroesophageal reflux disease. She has been on omeprazole for the last couple years, but quit taking it after her surgery. She has capsules, which could be opened and mixed with applesauce, which she can restart after discharge. 3. Obesity with rapid weight gain over the last year and a half. RECOMMENDATIONS: 1. Proton pump inhibitor IV. 2. EGD tomorrow. 3. Antiemetics. Job ID: [id number] [facility]
[2019-02-19] MEDS: Promethazine HCl 25 MG/ML VIAL SLOW IVP PRN ×4 (03:10→19:59)
[2019-02-19] MEDS: Metoclopramide HCl 10 MG/2 ML VIAL IVP SCH ×3 (05:05→21:24)
[2019-02-19] MEDS: Lorazepam 2 MG/ML VIAL SLOW IVP PRN ×2 (06:55→08:05)
[2019-02-19] MEDS: Multivitamins, Adult 10 ML in Sodium Chloride 0.9% 500 ML IV SCH (07:32)
[2019-02-19] MEDS: D5 1/2 NS w/20 mEq KCL 1,000 ML IV SCH ×3 (07:33→20:00)
[2019-02-19] MEDS: Pantoprazole 40 MG VIAL IVP SCH (07:35)
--- NOTE | 2019-02-19 09:53 | PRG ---
DATE OF SERVICE: 02/19/2019 SUBJECTIVE: The patient continues to have intractable nausea. She had a barium swallow yesterday, did not show any obstruction, showed a small hiatal hernia, and showed a reflux with a lot of tertiary contractures of the esophagus. 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 OBJECTIVE: VITAL SIGNS: Her temperature is 98, pulse 79, and blood pressure 100/68. GENERAL: She does not appear to be in any distress. She is watching her cellphone. No retching. No obvious vomiting. ABDOMEN: Soft, nondistended, and nontender. ASSESSMENT: Intractable vomiting, unclear etiology, possible esophageal dysmotility. PLAN: EGD, we will need central line placement. TPN for nutrition. Further recommendations encouraged from GI. Job ID: [id number]
[2019-02-19] MEDS ORDERED: Fentanyl 100 MCG/2 ML VIAL ONE ×2 (12:30→14:02)
[2019-02-19] MEDS ORDERED: Midazolam HCl 2 mg/2 ml Vial ONE ×2 (12:30→12:41)
[2019-02-19] MEDS ORDERED: Sodium Chloride 0.9% 20 ML ONE (12:32)
[2019-02-19] MEDS ORDERED: Fat Emulsion 250 ML, Multivitamins, Adult 10 ML, Multitrace-5 5 ML in D15W-AA 5% with L... IV SCH (14:00)
--- NOTE | 2019-02-19 14:10 | RAD ---
Exam: Chest one view HISTORY:Status post central line placement. Evaluate for Pneumothorax. Comparison: 04/25/2018 FINDINGS: Cardiac silhouette: Normal Aorta: Unremarkable Pulmonary vessels: Normal Costophrenic angles: Clear LUNGS: No masses or consolidation. Lines and tubes: Interval placement of a left-sided subclavian central venous catheter with the dista l tip in the expected region of the right atrium. Pneumothorax: None Osseous abnormalities: None IMPRESSION: 1. Interval placement of a left-sided subclavian central venous catheter. No pneumothorax.
[2019-02-19] MEDS ORDERED: PROPOFOL 200 MG/20 ML VIAL ONE (15:17)
[2019-02-19] MEDS ORDERED: Lidocaine 1% PF 5 ML VIAL ONE (15:17)
[2019-02-19] MEDS ORDERED: Ketorolac Tromethamine 30 MG/ML VIAL IVP SCH (15:45)
--- NOTE | 2019-02-19 19:23 | OP ---
DATE OF PROCEDURE: 02/19/2019 PROCEDURE PERFORMED: Esophagogastroduodenoscopy with biopsy. PREOPERATIVE DIAGNOSIS: Persistent nausea and vomiting. She is status post sleeve gastrectomy 2 weeks ago. DESCRIPTION OF PROCEDURE: Informed consent was obtained from the patient. She was sedated with total intravenous anesthesia. The bite block was placed and the endoscope was advanced easily to the second portion of the duodenum. The esophagus was normal. The GE junction was normal overall. The stomach had post gastric sleeve anatomy; however, the lumen was widely patent and the staple line appeared healthy and intact. There was no stenosis. There was a 5 mm polyp in the distal body of the stomach, which was biopsied. The antrum of the stomach had mild erythematous gastritis around the pylorus. First portion of the duodenum had a 2 mm polyp on the lateral wall, which was completely removed by cold biopsy forceps. The second portion of the duodenum was normal. IMPRESSION: 1. Normal esophagus. 2. Post gastric sleeve anatomy. The staple line appears healthy and intact. The lumen is patent and there is no stenosis. 3. 2 mm polyp in the duodenal bulb removed by cold biopsy forceps. 4. A 5 mm polyp was biopsied from the distal gastric body. 5. Mild erythematous antral gastritis. RECOMMENDATIONS: 1. Advance diet as tolerated. 2. She is going to proceed with central venous line placement for TPN to follow this procedure immediately. 3. I will sign off for now. Please call if GI can be of assistance. Job ID: [id number]
[2019-02-19] MEDS: Morphine 2 MG/ML SYRINGE SLOW IVP PRN ×2 (20:29→22:41)
[2019-02-20] MEDS: Morphine 2 MG/ML SYRINGE SLOW IVP PRN ×6 (01:16→21:27)
[2019-02-20] MEDS: Promethazine HCl 25 MG/ML VIAL SLOW IVP PRN ×4 (02:37→23:30)
[2019-02-20] MEDS: Metoclopramide HCl 10 MG/2 ML VIAL IVP SCH ×3 (05:49→21:25)
[2019-02-20] MEDS: D5 1/2 NS w/20 mEq KCL 1,000 ML IV SCH ×2 (05:50→12:00)
[2019-02-20 06:04] LABS: #Basophils 0.1 thou/uL (0.0-0.2); #Eosinphils 0.2 thou/uL (0.0-0.7); #Lymphocytes 1.4 thou/uL (1.20-3.40); #Monocytes 0.5 thou/uL (0.11-0.59); #Neutrophils 4.3 thou/uL (1.40-6.50); %Basophils 1.1 % (0.0-1.0); %Eosinophils 3.1 % (0.0-10.0); %Lymphocytes 21.2 % (21.0-51.0); %Monocytes 7.6 % (0.0-10.0); Hemoglobin 13.9 g/dL (12.0-16.0); Mean Corpuscular HGB CONC 34.1 g/dL (32.0-36.0); Mean Corpuscular Hemoglobin 31.5 pg (27.0-31.0); Mean Corpuscular Volume 92.2 fL (78.0-98.0); Mean Platelet Volume 7.4 fL (7.4-10.4); Platelet Count 305 thou/uL (130-400); RBC Distribution Width 12.3 % (11.5-14.5); Red Blood Cell (RBC) Count 4.42 mill/uL (4.20-5.40); White Blood Cell (WBC) Count 6.4 thou/uL (4.8-10.8)
[2019-02-20 06:26] LABS: Anion Gap 9 mmol/L (10-20); BUN (Urea Nitrogen) 6 mg/dL (7.0-18.7); Calc. Creatinine Clearance 163 mL/min (70-130); Calcium 8.7 mg/dL (7.8-10.44); Carbon Dioxide 23 mmol/L (22-29); Chloride 111 mmol/L (98-107); Estimated GFR-MDRD Greater than 90; Glucose 106 mg/dL (70-105); Sodium 139 mmol/L (136-145)
[2019-02-20] MEDS: Pantoprazole 40 MG VIAL IVP SCH (08:09)
[2019-02-20] MEDS: Multivitamins, Adult 10 ML in Sodium Chloride 0.9% 500 ML IV SCH (08:10)
--- NOTE | 2019-02-20 09:56 | PRG ---
DATE OF SERVICE: 02/20/2019 SUBJECTIVE: The patient states she feels better, but anytime she tries to eat or drink anything, she starts having dry heaves. She complains primarily of pain at the insertion site of the central line. She is asking for morphine for that pain. OBJECTIVE: VITAL SIGNS: Her temperature is 97.7, pulse 70, blood pressure 113/81. GENERAL: She is awake, alert. She does not appear to be in any distress. ABDOMEN: Soft, nondistended, nontender. LABORATORY DATA: White count 6.4, H and H of 13 and 40, platelet count 305. Her electrolytes are basically normal. She is on TPN. IMAGING STUDIES: The EGD yesterday showed no evidence of obstruction. No abnormality other than a small polyp that was removed. ASSESSMENT: Intractable nausea and vomiting of unclear etiology. PLAN: We will continue TPN and slowly advance diet. Job ID: [id number]
[2019-02-20] MEDS: CALCIUM GLUCONATE IV SCH (15:08)
[2019-02-20] MEDS: POTASSIUM PHOSPHATE IV SCH (15:08)
[2019-02-20] MEDS: SODIUM ACETATE IV SCH (15:08)
[2019-02-20] MEDS: [UNRECOGNIZED DRUG - OTHER] IV SCH (15:08)
[2019-02-20] MEDS: Scopolamine 1.5 mg/72 hour Patch TD SCH (17:07)
[2019-02-21] MEDS: Morphine 2 MG/ML SYRINGE SLOW IVP PRN ×5 (01:30→23:54)
[2019-02-21] MEDS: D5 1/2 NS w/20 mEq KCL 1,000 ML IV SCH ×3 (03:16→14:39)
[2019-02-21] MEDS: Metoclopramide HCl 10 MG/2 ML VIAL IVP SCH ×3 (06:39→21:14)
[2019-02-21] MEDS: Promethazine HCl 25 MG/ML VIAL SLOW IVP PRN ×2 (06:39→19:47)
[2019-02-21 06:53] LABS: PTT 29.4 SEC (22.9-36.1); Prothrombin Time 13.1 SEC (12.0-14.7)
[2019-02-21 07:13] LABS: ALT (SGPT) 22 U/L (8-55); AST (SGOT) 18 U/L (5-34); Albumin 3.5 g/dL (3.5-5.0); Alkaline Phosphatase 50 U/L (40-150); Anion Gap 7 mmol/L (10-20); BUN (Urea Nitrogen) 12 mg/dL (7.0-18.7); Bilirubin, Total 0.3 mg/dL (0.2-1.2); Calc. Creatinine Clearance 173 mL/min (70-130); Calcium 8.9 mg/dL (7.8-10.44); Carbon Dioxide 27 mmol/L (22-29); Cardiac Risk 3.9 (Less than 4.5); Chloride 106 mmol/L (98-107); Cholesterol 121 mg/dl (< 200 Desired); Estimated GFR-MDRD Greater than 90; Globulin 2.2 g/dL (2.4-3.5); Glucose 86 mg/dL (70-105); HDL Cholesterol 31 mg/dL (>60 Neg Risk); LDL Cholesterol, Calculated 56 mg/dL; Phosphorus 2.9 mg/dL (2.3-4.7); Protein, Total 5.7 g/dL (6.0-8.3); Sodium 136 mmol/L (136-145); Triglycerides 168 mg/dL (Less than 150)
[2019-02-21] MEDS: Multivitamins, Adult 10 ML in Sodium Chloride 0.9% 500 ML IV SCH (09:39)
[2019-02-21] MEDS: Pantoprazole 40 MG VIAL IVP SCH (09:39)
--- NOTE | 2019-02-21 14:09 | PRG ---
DATE OF SERVICE: 02/21/2019 SUBJECTIVE: The patient states she was able to take a little bit of fluid yesterday and got sick. She has had a little Jell-O today and so far is okay. She denies pain. OBJECTIVE: VITAL SIGNS: Temperature is 98, pulse 67, and blood pressure 114/78. GENERAL: She claims to be getting up and moving around, but she has been lying around in bed as far as I can tell. ABDOMEN: Soft, nondistended, and nontender. ASSESSMENT: Nausea and vomiting, unclear etiology. PLAN: Continue TPN. She will need Lovenox because she has been immobile. We will continue multivitamins. See if GI has any further recommendations. Job ID: [id number]
[2019-02-21] MEDS: SODIUM ACETATE IV SCH (14:43)
[2019-02-21] MEDS: [UNRECOGNIZED DRUG - OTHER] IV SCH (14:43)
[2019-02-21] MEDS: CALCIUM GLUCONATE IV SCH (14:43)
[2019-02-21] MEDS: POTASSIUM PHOSPHATE IV SCH (14:43)
[2019-02-21] MEDS: Enoxaparin Sodium 40 MG/0.4 ML SYRINGE SC SCH (19:47)
[2019-02-22] MEDS: Morphine 2 MG/ML SYRINGE SLOW IVP PRN ×4 (02:18→19:54)
[2019-02-22] MEDS: D5 1/2 NS w/20 mEq KCL 1,000 ML IV SCH ×3 (04:19→17:32)
[2019-02-22] MEDS: Metoclopramide HCl 10 MG/2 ML VIAL IVP SCH ×3 (06:23→22:21)
[2019-02-22 07:00] LABS: ALT (SGPT) 29 U/L (8-55); AST (SGOT) 24 U/L (5-34); Albumin 3.3 g/dL (3.5-5.0); Alkaline Phosphatase 50 U/L (40-150); Anion Gap 6 mmol/L (10-20); BUN (Urea Nitrogen) 15 mg/dL (7.0-18.7); Bilirubin, Total 0.3 mg/dL (0.2-1.2); Calc. Creatinine Clearance 168 mL/min (70-130); Calcium 8.6 mg/dL (7.8-10.44); Carbon Dioxide 28 mmol/L (22-29); Cardiac Risk 3.9 (Less than 4.5); Chloride 104 mmol/L (98-107); Cholesterol 105 mg/dl (< 200 Desired); Estimated GFR-MDRD Greater than 90; Globulin 2.1 g/dL (2.4-3.5); Glucose 89 mg/dL (70-105); HDL Cholesterol 27 mg/dL (>60 Neg Risk); LDL Cholesterol, Calculated 45 mg/dL; Magnesium 2.1 mg/dL (1.6-2.6); Phosphorus 2.9 mg/dL (2.3-4.7); Potassium 4.1 mmol/L (3.5-5.1); Protein, Total 5.4 g/dL (6.0-8.3); Sodium 134 mmol/L (136-145); Triglycerides 167 mg/dL (Less than 150)
[2019-02-22] MEDS: Promethazine HCl 25 MG/ML VIAL SLOW IVP PRN ×2 (08:53→19:55)
[2019-02-22] MEDS: Pantoprazole 40 MG VIAL IVP SCH (09:07)
--- NOTE | 2019-02-22 13:58 | PRG ---
DATE OF SERVICE: 02/22/2019 SUBJECTIVE: The patient says she is feeling a little bit better. She has been able to drink some fluids both last night and today, still not to the point where she can go home as far as volume goes, but better. OBJECTIVE: VITAL SIGNS: Temperature is 98.2, pulse 72, blood pressure 102/71. GENERAL: She looks better. ABDOMEN: Soft, nondistended, and nontender. ASSESSMENT: Doing well. PLAN: Continue TPN. Hopefully, discharge tomorrow. Job ID: [id number]
[2019-02-22] MEDS: SODIUM ACETATE IV SCH (15:14)
[2019-02-22] MEDS: [UNRECOGNIZED DRUG - OTHER] IV SCH (15:14)
[2019-02-22] MEDS: POTASSIUM PHOSPHATE IV SCH (15:14)
[2019-02-22] MEDS: CALCIUM GLUCONATE IV SCH (15:14)
[2019-02-22] MEDS: Enoxaparin Sodium 40 MG/0.4 ML SYRINGE SC SCH (20:00)
[2019-02-22] MEDS ORDERED: Ketorolac Tromethamine 30 MG/ML VIAL IVP SCH (23:59)
[2019-02-23 00:08] LABS: Troponin I Less than 0.010 ng/mL (< 0.028)
--- NOTE | 2019-02-23 01:29 | CON ---
DATE OF CONSULTATION: This is Chaparrita Pack PA-C dictating a report for Franko Florence MD. REASON FOR CONSULTATION: Evaluation of chest pain/medical management. HISTORY OF PRESENT ILLNESS: Ms. Kaufman is a 43-year-old female with past medical history significant for obesity status post gastric sleeve procedure 2 weeks ago, who was admitted to the hospital by Dr. Florence with complaints of intractable nausea and vomiting post procedure. Since her admission, the patient has undergone a CT scan of the abdomen and pelvis, which did not show any signs of acute postoperative complications. She also underwent a barium swallow which did show passage of contrast through the gastric sleeve. Dr. Oviedo of GI was consulted and performed upper endoscopy which was essentially normal aside from some mild antral gastritis. The patient has been improving, and is currently on TPN. Over the past couple of days, the patient has reported some intermittent chest discomfort which she describes as a pressure. She denies any associated shortness of breath. She denies any dizziness or palpitations. She states that the discomfort is exacerbated with deep breathing. She states it occasionally radiates up into the neck. 12-lead EKG performed showed sinus rhythm with no ischemic ST or T-wave changes. Her initial troponin is negative. She is conversing comfortably and is in no acute distress. REVIEW OF SYSTEMS: A 12-point review of systems was performed. The patient states that her nausea and vomiting have much improved. She does have a history of acid reflux, which occasionally bothers her. She has ambulated the halls in this hospitalization without any exertional chest discomfort. She reports no fever or chills. All other systems negative. PAST MEDICAL HISTORY: 1. Bipolar disorder/depression. 2. Migraine headaches. 3. Obesity. 4. Osteoarthritis. PAST SURGICAL HISTORY: 1. Knee surgery. 2. Appendectomy. 3. Hysterectomy. 4. Breast augmentation. 5. Orthopedic procedure on her ankle. 6. Recent cast gastric sleeve. 7. EGD in this hospitalization. FAMILY HISTORY: She does have a family history of coronary artery disease. Her father has had both CABG and stents. Family history is also positive for diabetes and hypertension. SOCIAL HISTORY: The patient is a nonsmoker. No alcohol or illicit drug use. ALLERGIES: ZOFRAN AND LATEX. HOME MEDICATIONS: 1. Clonazepam 1 mg p.o. t.i.d. 2. Hydrocodone acetaminophen p.o. q.6. 3. Omeprazole 40 mg p.o. at bedtime. 4. Promethazine 25 mg p.o. q.4. 5. Topiramate 100 mg tablet p.o. q.p.m. and 200 mg p.o. daily. PHYSICAL EXAMINATION: VITAL SIGNS: Blood pressure 108/77, pulse is 83, O2 saturation is 97% on room air, respirations 16, temperature 98.3. GENERAL: This is an obese female, lying in bed, in no acute distress. HEENT: Head is atraumatic and normocephalic. Mucous membranes are moist. NECK: Trachea is midline. No obvious JVD. No lymphadenopathy. CV: S1 and S2. Regular rate and rhythm. No appreciable murmurs, rubs, or gallops. LUNGS: Regular respiratory rate and pattern. Clear to auscultation bilaterally. ABDOMEN: Soft, obese, nontender. Positive bowel sounds. EXTREMITIES: No edema. Warm and well perfused. +2 DP pulses bilaterally. NEUROLOGICAL: Cranial nerves 2 through 12 are grossly intact. The patient is nonfocal. LABORATORY DATA: Sodium 134, potassium 4.1, carbon dioxide 28, BUN is 15, creatinine 0.67, glucose 87, phosphorus 2.9, magnesium 2.1, AST 24, ALT 29, alkaline phosphatase 50. Troponin is negative. ASSESSMENT: 1. Chest pain-unclear etiology, but suspect noncardiac, EKG normal. Troponin negative. 2. Intractable nausea and vomiting, status post gastric sleeve 2 weeks ago, on TPN; CT showing no postoperative complication. EGD essentially normal. 3. Anxiety and bipolar depression. PLAN: At this time, we will continue serial cardiac enzymes to rule out ACS. Certainly, her chest pain has some pleuritic features and we will give her one time dose of Toradol. The patient is not tachycardic nor short of breath and has been on pharmacologic DVT prophylaxis since her admission and PE is low on my differential at this time. We will go ahead and get a 2D transthoracic echocardiogram to rule out any structural abnormality. We will continue to follow with you. Thank you for the consultation. Job ID: [id number]
[2019-02-23] MEDS: D5 1/2 NS w/20 mEq KCL 1,000 ML IV SCH ×3 (02:44→21:06)
[2019-02-23 03:02] LABS: Troponin I Less than 0.010 ng/mL (< 0.028)
[2019-02-23 03:25] LABS: ALT (SGPT) 33 U/L (8-55); AST (SGOT) 25 U/L (5-34); Albumin 3.2 g/dL (3.5-5.0); Alkaline Phosphatase 52 U/L (40-150); Anion Gap 8 mmol/L (10-20); BUN (Urea Nitrogen) 16 mg/dL (7.0-18.7); Bilirubin, Total 0.3 mg/dL (0.2-1.2); Calc. Creatinine Clearance 166 mL/min (70-130); Calcium 8.6 mg/dL (7.8-10.44); Carbon Dioxide 27 mmol/L (22-29); Chloride 105 mmol/L (98-107); Cholesterol 104 mg/dl (< 200 Desired); Estimated GFR-MDRD Greater than 90; Globulin 2.2 g/dL (2.4-3.5); Glucose 121 mg/dL (70-105); HDL Cholesterol 26 mg/dL (>60 Neg Risk); LDL Cholesterol, Calculated 42 mg/dL; Phosphorus 2.8 mg/dL (2.3-4.7); Potassium 4.1 mmol/L (3.5-5.1); Protein, Total 5.4 g/dL (6.0-8.3); Sodium 136 mmol/L (136-145); Triglycerides 180 mg/dL (Less than 150)
[2019-02-23] MEDS: Metoclopramide HCl 10 MG/2 ML VIAL IVP SCH ×3 (05:24→21:03)
[2019-02-23] MEDS: Pantoprazole 40 MG VIAL IVP SCH (09:11)
[2019-02-23] MEDS: Morphine 2 MG/ML SYRINGE SLOW IVP PRN ×4 (09:24→22:23)
[2019-02-23] MEDS: Scopolamine 1.5 mg/72 hour Patch TD SCH (09:26)
[2019-02-23] MEDS: Promethazine HCl 25 MG/ML VIAL SLOW IVP PRN ×4 (10:41→22:22)
--- NOTE | 2019-02-23 15:02 | PRG ---
DATE OF SERVICE: 02/23/2019 SUBJECTIVE: She says she is feeling better. She did have some severe chest pain last night. We had the Medical Service evaluate her, but really could not find anything causing it. She says she feels better now. It just hurts to take a deep breath. PHYSICAL EXAMINATION: VITAL SIGNS: Her temperature is 98.2, pulse 77, blood pressure 105/73. GENERAL: She looks fine. ABDOMEN: Soft, nondistended, nontender. She is tolerating some liquids now. Early, she tolerated her morning meal. PLAN: I encouraged her to keep trying to take p.o. When she is able to drink 8 ounces in 2 hours, I will let her go home. Job ID: [id number]
[2019-02-23] MEDS: CALCIUM GLUCONATE IV SCH (15:48)
[2019-02-23] MEDS: POTASSIUM PHOSPHATE IV SCH (15:48)
[2019-02-23] MEDS: SODIUM ACETATE IV SCH (15:48)
[2019-02-23] MEDS: [UNRECOGNIZED DRUG - OTHER] IV SCH (15:48)
--- NOTE | 2019-02-23 17:33 | PDOC.HOSPP ---
- Subjective Encounter Date: 02/23/19 Encounter Time: 17:32 Subjective: Endorses CP intermittently, worse with movement or deep breaths; presently mild , overnight one episode that felt "more intense" but brief; cardiac biomarkers negative. Nausea with water. Tolerating TPN infusion. Ambulating multiple times per day - Objective Vital Signs & Weight: Vital Signs (12 hours) Temp Pulse Resp BP Pulse Ox 02/23/19 16:03 98.1 F 77 18 101/71 94 L 02/23/19 13:01 98.2 F 77 16 105/73 96 02/23/19 08:00 98.2 F 82 14 106/74 95 Weight Admit Weight 217 lb Weight 217 lb I&O: 02/22/19 02/23/19 02/24/19 06:59 06:59 06:59 Intake Total 1864 1979 Balance 1864 1979 Result Diagrams: 02/20/19 05:56 02/23/19 02:29 Additional Labs: Accuchecks 02/23/19 02/22/19 05:28 23:35 POC Glucose 104 97 Hospitalist ROS - Medication Medications: Active Medications Generic Name Dose Route Start Last Admin Trade Name Freq PRN Reason Stop Dose Admin Enoxaparin Sodium 40 mg 02/21/19 21:00 02/22/19 20:00 Lovenox SC 40 mg 2100 ADITI Administration Potassium Chloride/Dextrose/Sod Cl 1,000 mls @ 125 mls/hr 02/17/19 17:30 09:11 D5 1/2 Ns W/20 Meq Kcl IV 1,000 mls .Q8H ADITI Administration Sodium Acetate 50 meq/ 1,777.5354 mls @ 74.064 mls/hr 02/20/19 14:00 15:48 Potassium Phosphate 40 mmol/ IV 1,777.5354 mls Calcium Gluconate 10 meq/ 1400 ADITI Administration Magnesium Sulfate 10 meq/ Multivitamins 10 ml/ Chromium/ Copper/Manganese/Seleni/Zn 5 ml/ Fat Emulsion Intravenous 100 ml/ Amino Acids/ Dextrose/ Water/ Sterile Water Lorazepam 0.5 mg 02/19/19 06:45 02/19/19 08:05 Ativan SLOW IVP 0.5 mg Q2H PRN Administration Anxiety Metoclopramide HCl 10 mg 02/17/19 22:00 02/23/19 14:28 Reglan IVP 10 mg Q8HR ADITI Administration Morphine Sulfate 2 mg 02/19/19 20:22 02/23/19 14:24 Morphine SLOW IVP 2 mg Q2H PRN Administration Pain Nitroglycerin 0.4 mg 02/18/19 17:11 02/19/19 20:00 Nitrostat SL 0.4 mg Q2H PRN Administration Pain Pantoprazole Sodium 40 mg 02/18/19 09:00 02/23/19 09:11 Protonix IVP 40 mg DAILY ADITI Administration Promethazine HCl 12.5 mg 02/18/19 11:32 02/23/19 14:24 Phenergan SLOW IVP 12.5 mg Q2H PRN Administration Nausea/Vomiting Scopolamine 1.5 mg 02/17/19 18:00 02/23/19 09:26 Transderm Scop TD 1.5 mg Q3D ADITI Administration - Exam General Appearance: NAD General - other findings: appears comfortable presently Eye: anicteric sclera ENT: moist mucosa Neck: supple, no JVD Heart: RRR Heart - other findings: CP not reproducible on palpation chest wall Respiratory: CTAB Gastrointestinal: soft, non-tender Extremities: no edema Skin: no rashes Neurological: normal sensation to touch, no new deficit Musculoskeletal: no muscle wasting Psychiatric: A&O x 3 Hosp A/P (1) Chest pain, non-cardiac Code(s): R07.89 - OTHER CHEST PAIN Status: Acute (2) Protein calorie malnutrition Code(s): E46 - UNSPECIFIED PROTEIN-CALORIE MALNUTRITION Status: Acute (3) Dehydration Code(s): E86.0 - DEHYDRATION Status: Acute (4) S/P gastrectomy Status: Acute (5) Bipolar disorder with severe depression Code(s): F31.4 - BIPOLAR DISORD, CRNT EPSD DEPRESS, SEV, W/O PSYCH FEATURES Status: Chronic (6) GERD (gastroesophageal reflux disease) Code(s): K21.9 - GASTRO-ESOPHAGEAL REFLUX DISEASE WITHOUT ESOPHAGITIS Status: Chronic Qualifiers: Esophagitis presence: esophagitis presence not specified Qualified Code(s) : K21.9 - Gastro-esophageal reflux disease without esophagitis - Plan Chest pain - Echo reviewed, normal; cardiac enzymes negative. Suspect chest wall pain (hurts with position changes and deep breaths on background of emesis) ; no further investigation needed. Discussed with patient, support offered, questions answered. GI - continue IV PPI FEN - working on goal of oral fluids as outlined by Dr. Florence DVT prophylaxis - Lovenox; continue ambulation/out of bed
[2019-02-23] MEDS: Enoxaparin Sodium 40 MG/0.4 ML SYRINGE SC SCH (20:25)
[2019-02-24] MEDS: D5 1/2 NS w/20 mEq KCL 1,000 ML IV SCH ×3 (03:07→18:32)
[2019-02-24 04:12] LABS: ALT (SGPT) 29 U/L (8-55); AST (SGOT) 21 U/L (5-34); Albumin 3.2 g/dL (3.5-5.0); Alkaline Phosphatase 59 U/L (40-150); Anion Gap 10 mmol/L (10-20); BUN (Urea Nitrogen) 15 mg/dL (7.0-18.7); Bilirubin, Total 0.4 mg/dL (0.2-1.2); Calc. Creatinine Clearance 168 mL/min (70-130); Calcium 8.6 mg/dL (7.8-10.44); Carbon Dioxide 25 mmol/L (22-29); Cardiac Risk 4.4 (Less than 4.5); Chloride 105 mmol/L (98-107); Cholesterol 106 mg/dl (< 200 Desired); Estimated GFR-MDRD Greater than 90; Globulin 2.4 g/dL (2.4-3.5); Glucose 101 mg/dL (70-105); HDL Cholesterol 24 mg/dL (>60 Neg Risk); LDL Cholesterol, Calculated 41 mg/dL; Phosphorus 3.1 mg/dL (2.3-4.7); Potassium 4.1 mmol/L (3.5-5.1); Protein, Total 5.6 g/dL (6.0-8.3); Sodium 136 mmol/L (136-145); Triglycerides 206 mg/dL (Less than 150)
[2019-02-24] MEDS: Morphine 2 MG/ML SYRINGE SLOW IVP PRN ×5 (04:43→20:56)
[2019-02-24] MEDS: Promethazine HCl 25 MG/ML VIAL SLOW IVP PRN ×2 (04:45→09:36)
[2019-02-24] MEDS: Metoclopramide HCl 10 MG/2 ML VIAL IVP SCH ×3 (05:10→21:00)
[2019-02-24] MEDS: Pantoprazole 40 MG VIAL IVP SCH (08:21)
[2019-02-24] MEDS: Promethazine HCl 12.5 MG in Sodium Chloride 0.9% 50 ML IVPB PRN ×2 (15:40→20:54)
[2019-02-24] MEDS: POTASSIUM PHOSPHATE IV SCH (15:44)
[2019-02-24] MEDS: SODIUM ACETATE IV SCH (15:44)
[2019-02-24] MEDS: [UNRECOGNIZED DRUG - OTHER] IV SCH (15:44)
[2019-02-24] MEDS: CALCIUM GLUCONATE IV SCH (15:44)
--- NOTE | 2019-02-24 16:43 | EKG ---
Test Reason : STAT Blood Pressure : / mmHG Vent. Rate : 067 BPM Atrial Rate : 067 BPM P-R Int : 104 ms QRS Dur : 074 ms QT Int : 416 ms P-R-T Axes : 043 068 044 degrees QTc Int : 439 ms Sinus rhythm with short [place] Low voltage QRS Borderline ECG When compared with ECG of 25-JAN-2019 17:39, (Unconfirmed) No significant change was found Confirmed by DR. Odin LUNDBERG ([id number]) on 02/24/2019 4:43:30 PM Referred By: ANGELIKA Confirmed By:DR. Odin LUNDBERG
[2019-02-24] MEDS: Enoxaparin Sodium 40 MG/0.4 ML SYRINGE SC SCH (20:54)
[2019-02-25] MEDS: D5 1/2 NS w/20 mEq KCL 1,000 ML IV SCH ×2 (00:21→09:51)
[2019-02-25] MEDS: Metoclopramide HCl 10 MG/2 ML VIAL IVP SCH ×2 (05:23→14:12)
[2019-02-25] MEDS: Morphine 2 MG/ML SYRINGE SLOW IVP PRN (05:29)
[2019-02-25 05:58] LABS: ALT (SGPT) 28 U/L (8-55); AST (SGOT) 22 U/L (5-34); Alkaline Phosphatase 60 U/L (40-150); Anion Gap 10 mmol/L (10-20); BUN (Urea Nitrogen) 10 mg/dL (7.0-18.7); Bilirubin, Total 0.4 mg/dL (0.2-1.2); Calc. Creatinine Clearance 152 mL/min (70-130); Calcium 8.7 mg/dL (7.8-10.44); Carbon Dioxide 27 mmol/L (22-29); Cardiac Risk 5.1 (Less than 4.5); Chloride 105 mmol/L (98-107); Cholesterol 113 mg/dl (< 200 Desired); Estimated GFR-MDRD 86; Globulin 2.4 g/dL (2.4-3.5); Glucose 97 mg/dL (70-105); HDL Cholesterol 22 mg/dL (>60 Neg Risk); LDL Cholesterol, Calculated 55 mg/dL; Magnesium 1.9 mg/dL (1.6-2.6); Phosphorus 2.9 mg/dL (2.3-4.7); Potassium 4.4 mmol/L (3.5-5.1); Protein, Total 5.4 g/dL (6.0-8.3); Sodium 138 mmol/L (136-145); Triglycerides 182 mg/dL (Less than 150)
[2019-02-25] MEDS: Pantoprazole 40 MG VIAL IVP SCH (09:46)
[2019-02-25] MEDS: Promethazine HCl 12.5 MG in Sodium Chloride 0.9% 50 ML IVPB PRN (10:41)
[2019-02-25 15:10] VITALS: BP 130/71; TEMP 98.3
--- NOTE | 2019-02-26 09:26 | PQF ---
[employer] Crystal Reports [employer] KIET Joseph NIMESH AGUILERA [id number] [facility] A- 333 [id number] CLINICAL DOCUMENTATION CLARIFICATION FORM: POST DISCHARGE Addendum to original discharge summary date: ____ Late entry note date: __ Date: 02/26/19 ATTN: NIMESH AGUILERA MD Please exercise your independent, professional judgment in responding to the clarification form. Clinical indicators are provided on the bottom of this form for your review Please check appropriate box(s): [ ] Protein Calorie Malnutrition: [ x] Mild [ ] Moderate [ ] Severe [ ] Cachexia [ ] Other diagnosis [ ] Unable to determine CLINICAL INDICATORS - SIGNS / SYMPTOMS / LABS - Protein calorie malnutrition-Hospital PN, 02/23, NIMESH AGUILERA MD - Intractable vomiting-H&P, 02/17, Franko Florence Jr, MD - she has been on a liquid diet with protein shakes and water and broth since her surgery- Consultation report, 02/18, Preet reynolds MD - reports Weakness- ED record, 02/16 - BMI-36.1- Vital signs - Albumin: 3.2L, Total protein: 5.6L-Laboratory, 02/24 RISK FACTORS: - s/p gastrectomy- Hospital PN, 02/23, NIMESH AGUILERA MD - GERD-Hospital PN, 02/23, NIMESH AGUILERA MD - Obesity with rapid weight gain over the last year and a half-Consultation report, 02/18, Preet reynolds MD TREATMENT: -TPN for nutrition-Progress note, 02/19, Naman Abdul Jr, MD Moderate Malnutrition (in acute illness) Energy Intake: <75% of estimated energy requirement for > 7 days Weight Loss: 1-2%/1 week; 5%/ 1 month; 7.5%/3 months Other: mild body fat loss; mild muscle mass loss; mild fluid accumulation; Severe Malnutrition (in acute illness) Energy Intake: < 50% of estimated energy requirement for > 5 days Weight Loss: >1-2%/1 week; >5%/1 month; >7.5%/3 months Other: moderate body fat loss; moderate muscle mass loss; moderate- severe fluid accumulation; measurably reduced shoe ironer strength Moderate Malnutrition (in chronic illness) [employer] Crystal Reports Winform ViewerEnergy Intake: <75% of estimated energy requirement for >1 month Weight Loss: 5%/1 month; 7.5%/3 months; 10%/6 months; 20%/1 year Other: mild body fat loss; mild muscle mass loss; mild fluid accumulation Severe Malnutrition (in chronic illness) Energy Intake: <75% of estimated energy requirement for >1 month Weight Loss: >5%/1 month; >7.5%/3 months; >10%/6 months; >20%/1 year Other: severe body fat loss; severe muscle mass loss; severe fluid accumulation ; measurably reduced shoe ironer strength (This form is maintained as a part of the permanent medical record) 2014 [employer]. All Rights Reserved Prasad Vega [not provided] [not provided] [email or web address]
--- NOTE | 2019-02-26 10:00 | DIS ---
DATE OF ADMISSION: 02/17/2019 DATE OF DISCHARGE: 02/25/2019 DISCHARGE DIAGNOSES: Intractable nausea and vomiting of unclear etiology. PROCEDURES DURING ADMISSION: CT scan of abdomen, barium swallow, esophagogastroduodenoscopy, echocardiogram, central line placement, TPN therapy. HOSPITAL COURSE: The patient was admitted. CT scan did not show an etiology for her nausea and vomiting. There was no etiology on her laboratory other than a slightly low potassium level. This was replaced. A barium swallow was performed that showed no obstruction. GI was consulted. They did EGD, showed no obstruction. No pathology. She had a central line placed. TPN was initiated. She was tried on multiple antiemetics. Eventually over the next series of days, her nausea and vomiting resolved and she is now tolerating liquids well. She is discharged home on her usual medications with some extra Phenergan. She will continue omeprazole. She will follow up with me in 1 week. Job ID: [id number]
== END 2019-02-25 17:08 | disposition home or self-care (01) | DRG 392 ==
LOC: ERS 10:26 → SURG A 14:13
PROVIDERS: ADMIT Surgery; ATTEND Surgery
PROC: 0DB98ZX Excision of Duodenum, Via Natural or Artificial Opening Endoscopic, Diagnostic (ICD-10-PCS; principal; 2019-02-19)
PROC: 0DB78ZX Excision of Stomach, Pylorus, Via Natural or Artificial Opening Endoscopic, Diagnostic (ICD-10-PCS; 2019-02-19)
DX: R11.2 Nausea with vomiting, unspecified (principal); E46 Unspecified protein-calorie malnutrition; E86.0 Dehydration; F41.9 Anxiety disorder, unspecified; R07.89 Other chest pain; K21.9 Gastro-esophageal reflux disease without esophagitis; G43.909 Migraine, unspecified, not intractable, without status migrainosus; E87.6 Hypokalemia; F31.9 Bipolar disorder, unspecified; M19.90 Unspecified osteoarthritis, unspecified site; E66.9 Obesity, unspecified; Z68.36 Body mass index [BMI] 36.0-36.9, adult; Z88.8 Allergy status to other drugs, medicaments and biological substances; Z90.710 Acquired absence of both cervix and uterus; Z98.51 Tubal ligation status; Z98.84 Bariatric surgery status; Z90.49 Acquired absence of other specified parts of digestive tract; Z91.040 Latex allergy status
CPT/HCPCS: 36415; 36416; 71045; 74177; 74220; 80048; 80053; 80061; 82150; 83605; 83690; 83735; 84100; 84134; 84484; 85025; 85610; 85730; 88305; 88312; 93005; 93010; 93306; 96361; 96365; 96366; 96367; 96375; A4217; C9113; J0131; J1200; J1642; J1650; J1885; J2001; J2060; J2250; J2270; J2550; J2704; J2765; J3010; J3411; J3475; J7050; Q9966

== ENCOUNTER 2019-11-15 07:56 | Outpatient (CLI) | payer MEDICARE, OTHER ==
[2019-11-15 13:36] LABS: Hemoglobin 14.9 g/dL (12.0-16.0); Mean Corpuscular HGB CONC 33.2 g/dL (32.0-36.0); Mean Corpuscular Hemoglobin 29.3 pg (27.0-31.0); Mean Platelet Volume 7.6 fL (7.4-10.4); Platelet Count 326 thou/uL (130-400); RBC Distribution Width 11.8 % (11.5-14.5); White Blood Cell (WBC) Count 8.2 thou/uL (4.8-10.8)
[2019-11-15 15:08] LABS: Anion Gap 13 mmol/L (10-20); BUN (Urea Nitrogen) 9 mg/dL (7.0-18.7); Calc. Creatinine Clearance 0 mL/min (70-130); Calcium 8.9 mg/dL (7.8-10.44); Carbon Dioxide 20 mmol/L (22-29); Chloride 111 mmol/L (98-107); Estimated GFR-MDRD 60; Glucose 99 mg/dL (70-105); Potassium 3.8 mmol/L (3.5-5.1); Sodium 140 mmol/L (136-145)
[2019-11-15 20:20] LABS: SARS-CoV-2 MS2 Positive; SARS-CoV-2 N Gene Negative; SARS-CoV-2 S Gene Negative; SARS-CoV-2 orf1ab Negative
--- NOTE | 2019-11-22 11:39 | EKG ---
Test Reason : Blood Pressure : / mmHG Vent. Rate : 072 BPM Atrial Rate : 072 BPM P-R Int : 104 ms QRS Dur : 078 ms QT Int : 426 ms P-R-T Axes : 046 081 062 degrees QTc Int : 466 ms Sinus rhythm with short CT with occasional Premature ventricular complexes Low voltage QRS Borderline ECG Confirmed by BROOKE LEARY ([id number]) on 11/22/2019 11:39:25 AM Referred By: MERISSA Confirmed By:BROOKE LEARY
== END 2019-11-15 07:57 | disposition home or self-care (01) ==
LOC: LABBT 07:56
PROVIDERS: ATTEND Orthopaedic Surgery
DX: Z01.818 Encounter for other preprocedural examination (principal); Z11.59 Encounter for screening for other viral diseases; M77.01 Medial epicondylitis, right elbow; M77.11 Lateral epicondylitis, right elbow
CPT/HCPCS: 80048; 85027; 93005; U0003; 87635; 93010

== ENCOUNTER 2019-11-18 11:42 | Day surgery (SDC) | payer MEDICARE, OTHER ==
[2019-11-11 11:03] VITALS: BMI 28.0
[2019-11-18] MEDS ORDERED: Dexamethasone 20 MG/5 ML VIAL ONE (12:16)
[2019-11-18] MEDS ORDERED: Ketorolac Tromethamine 30 MG/ML VIAL ONE (12:16)
[2019-11-18] MEDS ORDERED: PROPOFOL 200 MG/20 ML VIAL ONE (12:16)
[2019-11-18] MEDS ORDERED: Lidocaine 1% PF 5 ML VIAL ONE (12:16)
[2019-11-18] MEDS ORDERED: Midazolam HCl 2 mg/2 ml Vial ONE (12:35)
[2019-11-18] MEDS ORDERED: Fentanyl 100 MCG/2 ML VIAL ONE ×3 (12:35→15:21)
[2019-11-18] MEDS ORDERED: Lidocaine 1% w/Epinephrine 1:100K 20 ML VIAL ONE (12:59)
[2019-11-18] MEDS ORDERED: Neomycin-Polymyxin 1 ML AMP ONE (12:59)
[2019-11-18] MEDS ORDERED: Bupivacaine PF 0.5% 30 ML VIAL ONE (12:59)
[2019-11-18] MEDS ORDERED: Scopolamine 1.5 mg/72 hour Patch ONE (13:14)
[2019-11-18] MEDS ORDERED: HYDROcodone/Acetaminophen 7.5/325 mg Tablet ONE (16:59)
--- NOTE | 2019-11-18 20:00 | OP ---
DATE OF PROCEDURE: 11/18/2019 PREOPERATIVE DIAGNOSIS: Medial and lateral epicondylitis of the right elbow. POSTOPERATIVE DIAGNOSIS: Medial and lateral epicondylitis of the right elbow. PROCEDURE: Medial and lateral epicondylar releases. ANESTHESIA: General. DESCRIPTION OF PROCEDURE: The patient was given preoperative IV antibiotics, taken to the operating room, satisfactory general anesthesia was performed. The right upper extremity was sterilely prepped and draped in usual fashion. After exsanguination, tourniquet to the proximal right arm was raised to 250 mmHg. Initially, a longitudinal incision was made over the lateral epicondylar region. The incision was approximately 2 inches in length. The lateral epicondyles and the origin of the extensor muscles were identified and the tendons of the extensor mass was incised, brought down to the area of the radial head region. There was a small tear over the capsule of the radial head. After the lateral epicondylar tendons were released, the wound was irrigated with antibiotic solution and the tear over the radial head was repaired by suturing the undersurface of the tendons over this region using 0 Vicryl in interrupted [id number] sutures. The fat and subcutaneous tissue were closed with Vicryl and then skin was closed with 3-0 Rapide, the wound was then infiltrated with a total of 10 mL of 0.5% Marcaine and 1% lidocaine with epinephrine. Attention was then turned to the medial aspect of the elbow, where a 2-inch incision was made over the medial epicondylar region and the medial epicondylar tendon were released from the medial epicondyle sharply and blunt dissection was made down to the ulnar nerve, which was identified and left completely intact. It was released to make sure that this was also not an area of future problems. The medial epicondylar tendon was then loosely reattached using the 0 Vicryl, fat and subcutaneous tissue were closed and the skin was closed with 3-0 Rapide. This area was also infiltrated with 10 mL of 0.5% Marcaine and 1% lidocaine with epinephrine. Sterile dressing was applied. The tourniquet was released. The patient was then awakened, extubated, and transferred to recovery room in stable condition. ESTIMATED BLOOD LOSS: None. COMPLICATIONS: None. TOURNIQUET TIME: Was 28 minutes. DISCHARGE MEDICATION: Campbell 10 one every 6 hours as needed for pain, #40. FOLLOWUP: Follow up in my office next week. Job ID: [id number]
== END 2019-11-18 17:35 | disposition home or self-care (01) ==
LOC: SDC 11:42
PROVIDERS: ATTEND Orthopaedic Surgery
PROC: 0LN30ZZ Release Right Upper Arm Tendon, Open Approach (ICD-10-PCS; principal; 2019-11-18)
PROC: 0PBF0ZZ Excision of Right Humeral Shaft, Open Approach (ICD-10-PCS; 2019-11-18)
DX: M77.01 Medial epicondylitis, right elbow (principal); M77.11 Lateral epicondylitis, right elbow; S56.811A Strain of other muscles, fascia and tendons at forearm level, right arm, initial encounter; G43.909 Migraine, unspecified, not intractable, without status migrainosus; F40.240 Claustrophobia; F32.9 Major depressive disorder, single episode, unspecified; Z79.1 Long term (current) use of non-steroidal anti-inflammatories (NSAID); Z79.899 Other long term (current) drug therapy; Z88.8 Allergy status to other drugs, medicaments and biological substances; Z91.048 Other nonmedicinal substance allergy status
CPT/HCPCS: J0690; J1100; J1885; J2001; J2250; J2704; J3010; S0020

== ENCOUNTER 2020-07-17 21:09 | Emergency (ER) | payer MEDICARE ==
[2020-07-17] MEDS ORDERED: Ketorolac Tromethamine 30 MG/ML VIAL ONE (21:35)
[2020-07-17 21:55] LABS: #Lymphocytes 0.9 thou/uL (1.20-3.40); #Monocytes 0.3 thou/uL (0.11-0.59); #Neutrophils 4.5 thou/uL (1.40-6.50); %Basophils 0.6 % (0.0-1.0); %Eosinophils 0.7 % (0.0-10.0); %Lymphocytes 15.6 % (21.0-51.0); %Monocytes 5.8 % (0.0-10.0); %Neutrophils 77.3 % (42.0-75.0); Hemoglobin 15.7 g/dL (12.0-16.0); Mean Corpuscular HGB CONC 33.2 g/dL (32.0-36.0); Mean Corpuscular Hemoglobin 28.7 pg (27.0-31.0); Mean Corpuscular Volume 86.3 fL (78.0-98.0); Mean Platelet Volume 7.4 fL (7.4-10.4); Platelet Count 231 thou/uL (130-400); RBC Distribution Width 11.5 % (11.5-14.5); Red Blood Cell (RBC) Count 5.46 mill/uL (4.20-5.40); White Blood Cell (WBC) Count 5.8 thou/uL (4.8-10.8)
--- NOTE | 2020-07-17 22:24 | RAD ---
Portable frontal chest radiograph: 07/17/2020 COMPARISON: 02/19/2019 HISTORY: Lethargy, Covid positive patient FINDINGS: No pneumothorax or pleural fluid. No focal consolidation or alveolar edema. Heart and media stinal contours appear grossly unremarkable. IMPRESSION: No focal consolidation or alveolar edema.
[2020-07-17 22:26] LABS: ALT (SGPT) 36 U/L (8-55); Alkaline Phosphatase 85 U/L (40-110); Anion Gap 13 mmol/L (10-20); BUN (Urea Nitrogen) 6 mg/dL (7.0-18.7); Bilirubin, Total 0.3 mg/dL (0.2-1.2); Calc. Creatinine Clearance 0 mL/min (70-130); Calcium 8.9 mg/dL (7.8-10.44); Carbon Dioxide 23 mmol/L (22-29); Chloride 106 mmol/L (98-107); Globulin 3.5 g/dL (2.4-3.5); Glucose 103 mg/dL (70-105); Potassium 3.8 mmol/L (3.5-5.1); Protein, Total 7.5 g/dL (6.0-8.3); Sodium 138 mmol/L (136-145)
[2020-07-17] MEDS ORDERED: Acetaminophen 500 MG TAB ONE (22:40)
[2020-07-17 22:54] LABS: AST (SGOT) 27 U/L (5-34)
[2020-07-17] MEDS ORDERED: Promethazine HCl 25 MG/ML VIAL ONE (23:17)
== END 2020-07-18 00:25 | disposition home or self-care (01) ==
LOC: ERS 21:09
DX: U07.1 COVID-19 (principal); G43.909 Migraine, unspecified, not intractable, without status migrainosus; K21.9 Gastro-esophageal reflux disease without esophagitis; Z79.899 Other long term (current) drug therapy
CPT/HCPCS: 71045; 80053; 85025; 93005; 96365; 96375; J1885; J2550

== ENCOUNTER 2022-04-05 13:44 | Emergency (ER) | payer OTHER, MEDICARE ==
[~2022-04-05 13:44] MED LIST changes: +Iopamidol-370 76% 500 ML 1 ML ONE; -Multivit, Adult Inj 10 ML VIAL ONE; -Promethazine HCl 25 MG/ML VIAL ONE
[2022-04-05 14:52] LABS: #Basophils 0.1 thou/uL (0.0-0.2); #Eosinphils 0.1 thou/uL (0.0-0.7); #Lymphocytes 1.4 thou/uL (1.20-3.40); #Monocytes 0.3 thou/uL (0.11-0.59); #Neutrophils 6.4 thou/uL (1.40-6.50); %Basophils 0.9 % (0.0-1.0); %Eosinophils 0.9 % (0.0-10.0); %Lymphocytes 16.9 % (21.0-51.0); %Monocytes 3.9 % (0.0-10.0); %Neutrophils 77.4 % (42.0-75.0); Hemoglobin 14.8 g/dL (12.0-16.0); Mean Corpuscular HGB CONC 33.8 g/dL (32.0-36.0); Mean Corpuscular Hemoglobin 30.4 pg (27.0-31.0); Mean Platelet Volume 7.3 fL (7.4-10.4); Platelet Count 262 thou/uL (130-400); RBC Distribution Width 11.5 % (11.5-14.5); Red Blood Cell (RBC) Count 4.86 mill/uL (4.20-5.40); White Blood Cell (WBC) Count 8.3 thou/uL (4.8-10.8)
[2022-04-05 15:06] LABS: ALT (SGPT) 12 U/L (8-55); AST (SGOT) 19 U/L (5-34); Albumin 4.3 g/dL (3.5-5.0); Alkaline Phosphatase 41 U/L (40-110); Anion Gap 10 mmol/L (10-20); BUN (Urea Nitrogen) 13 mg/dL (7.0-18.7); Bilirubin, Total 0.5 mg/dL (0.2-1.2); Calc. Creatinine Clearance 0 mL/min (70-130); Calcium 9.4 mg/dL (7.8-10.44); Carbon Dioxide 21 mmol/L (22-29); Chloride 110 mmol/L (98-107); Estimated GFR 71; Globulin 2.9 g/dL (2.4-3.5); Glucose 92 mg/dL (70-105); Potassium 3.9 mmol/L (3.5-5.1); Protein, Total 7.2 g/dL (6.0-8.3); Sodium 137 mmol/L (136-145)
== END 2022-04-05 16:04 | disposition home or self-care (01) ==
LOC: ERS 13:44
DX: S29.012A Strain of muscle and tendon of back wall of thorax, initial encounter (principal); K21.9 Gastro-esophageal reflux disease without esophagitis; G43.909 Migraine, unspecified, not intractable, without status migrainosus; V49.9XXA Car occupant (driver) (passenger) injured in unspecified traffic accident, initial encounter
CPT/HCPCS: 71260; 72125; 74177; 80053; 85025; 96374; Q9967

== ENCOUNTER → 2023-08-04 | Day surgery (SDC) | payer MEDICARE | LOC: ENDO/OP 13:00 | PROVIDERS: ATTEND Family Medicine Sports Medicine | PROC: 4A1B78Z Monitoring of Gastrointestinal Motility, Via Natural or Artificial Opening (ICD-10-PCS; principal; 2023-08-04) | DX: R13.10 Dysphagia, unspecified (principal); K21.9 Gastro-esophageal reflux disease without esophagitis; F41.9 Anxiety disorder, unspecified; F32.A Depression, unspecified; E78.5 Hyperlipidemia, unspecified; K44.9 Diaphragmatic hernia without obstruction or gangrene; I10 Essential (primary) hypertension; E66.9 Obesity, unspecified; F33.2 Major depressive disorder, recurrent severe without psychotic features; Z98.84 Bariatric surgery status; Z98.51 Tubal ligation status; Z90.49 Acquired absence of other specified parts of digestive tract; Z68.26 Body mass index [BMI] 26.0-26.9, adult; Z90.89 Acquired absence of other organs; Z79.899 Other long term (current) drug therapy; Z91.048 Other nonmedicinal substance allergy status; Z91.038 Other insect allergy status; Z91.040 Latex allergy status; Z88.8 Allergy status to other drugs, medicaments and biological substances | CPT/HCPCS: 91010 ==